=== PATIENT | male | born 1955 | race Hispanic/Latino ===

== ENCOUNTER 2023-02-08 03:19 | Inpatient (IN) | payer OTHER ==
[~2023-02-08] VITALS: Ht 172.7 cm; Wt 62.6 kg
[~2023-02-08 03:19] MED LIST: FLUT15.845 NS; NIFE-39 PO; ROSU10TA28 PO
[2023-02-08] MEDS ORDERED: ONDANSETRON 4MG INJ ONE (03:28)
[2023-02-08 03:40] LABS: BASOPHILS % (AUTO) 0.3 % (0.0-5.0); EOSINOPHILS % (AUTO) 1.6 % (0.0-8.0); HEMATOCRIT 26.1 % (42-54); LYMPHOCYTES % (AUTO) 13.9 % (21.0-51.0); MEAN CORPUSCULAR HEMOGLOBIN 28.6 pg (27.0-33.0); MEAN CORPUSCULAR VOLUME 86.7 fL (79-99); MONOCYTES % (AUTO) 6.9 % (3.0-13.0); NEUTROPHILS % (AUTO) 76.5 % (40.0-77.0); PLATELET COUNT (AUTO) 356 K/uL (130-400); RED BLOOD CELL COUNT(AUTO) 3.01 MIL/uL (4.50-6.20); RED CELL DISTRIBUTION WIDTH 14.6 % (11.0-15.5); WHITE BLOOD COUNT (AUTO) 10.4 K/uL (4.8-10.8)
[2023-02-08 03:49] LABS: POTASSIUM 3.5 mmol/L (3.5-5.1)
[2023-02-08 03:49] LABS: OCCULT BLOOD,GASTRIC FLUID POSITIVE (NEGATIVE)
[2023-02-08 03:51] LABS: INR 0.96 (0.85-1.15); PROTHROMBIN TIME 10.5 SEC (9.6-11.6)
[2023-02-08 03:52] LABS: PARTIAL THROMBOPLASTIN TIME 26.4 SEC (26.3-35.5)
[2023-02-08 03:54] LABS: ALBUMIN 3.2 g/dL (3.5-5.0); TOTAL PROTEIN, SERUM 6.8 g/dL (6.0-8.3)
[2023-02-08] MEDS ORDERED: ONDANSETRON 4MG INJ IVP ONE (04:00)
[2023-02-08] MEDS ORDERED: IPRATROPIUM/ALBUTEROL SULFATE 3 ML SOLUTION IH ONE (04:00)
[2023-02-08] MEDS ORDERED: CEFD300C3 PO (04:42)
[2023-02-08] MEDS ORDERED: LACTULOSE 20 GM/30 ML UDCUP PO PRN (05:30)
[2023-02-08] MEDS ORDERED: ONDANSETRON 4MG INJ IV PRN (05:30)
[2023-02-08] MEDS ORDERED: ACETAMINOPHEN 325 MG TAB PO PRN ×2 (05:30)
[2023-02-08] MEDS: CEFEPIME HCL 2 GM VIAL IVPB SCH ×2 (06:10→19:06)
[2023-02-08] MEDS: 0.9%NACL 1000ML 1,000 ML IV SCH ×2 (06:10→19:09)
[2023-02-08 06:32] LABS: APPEARANCE,URINE CLEAR (CLEAR); BILIRUBIN,URINE NEGATIVE (NEGATIVE); COLOR,URINE COLORLESS (YELLOW); GLUCOSE, URINE (UA) NEGATIVE (NEGATIVE); KETONES,URINE NEGATIVE (NEGATIVE); LEUKOCYTE ESTERASE ,URINE NEGATIVE Leu/uL (NEGATIVE); NITRATE,URINE NEGATIVE (NEGATIVE); OCCULT BLOOD,URINE NEGATIVE (NEGATIVE); PH,URINE 5.5 (5.0-8.0); PROTEIN,URINE NEGATIVE (NEGATIVE); UROBILINOGEN,URINE 0.2 mg/dL (0.2-1.0)
[2023-02-08] MEDS: FAMOTIDINE 20MG VIAL IV SCH ×2 (08:02→20:20)
[2023-02-08 08:50] LABS: HEMATOCRIT 23.7 % (42-54)
[2023-02-08 11:15] VITALS: BP 143/68
[2023-02-08 16:00] VITALS: BP 152/65
[2023-02-08] MEDS: FLUTICASONE/VILANTEROL 1 EACH BLST.W.DEV IH SCH (19:06)
[2023-02-08 19:07] VITALS: BP 144/53
[2023-02-08 20:54] LABS: HEMATOCRIT 24.1 % (42-54)
[2023-02-08 23:07] VITALS: BP 111/53
[2023-02-09 03:33] VITALS: BP 115/50
[2023-02-09] MEDS: CEFEPIME HCL 2 GM VIAL IVPB SCH ×2 (07:01→17:13)
[2023-02-09 07:30] VITALS: BP 123/57
[2023-02-09] MEDS: SOLU-MEDROL 40MG VIAL IVP SCH (08:27)
[2023-02-09] MEDS: FAMOTIDINE 20MG VIAL IV SCH ×2 (08:27→20:54)
[2023-02-09] MEDS: FLUTICASONE/VILANTEROL 1 EACH BLST.W.DEV IH SCH (08:30)
[2023-02-09 09:27] LABS: HEMATOCRIT 26.4 % (42-54); MEAN CORPUSCULAR HEMOGLOBIN 28.6 pg (27.0-33.0); MEAN CORPUSCULAR HGB CONC 32.6 g/dL (32.0-36.0); MEAN CORPUSCULAR VOLUME 87.7 fL (79-99); RED BLOOD CELL COUNT(AUTO) 3.01 MIL/uL (4.50-6.20); RED CELL DISTRIBUTION WIDTH 15.2 % (11.0-15.5); WHITE BLOOD COUNT (AUTO) 8.7 K/uL (4.8-10.8)
[2023-02-09 09:37] LABS: CREATININE 0.9 mg/dL (0.5-1.5); POTASSIUM 4.1 mmol/L (3.5-5.1)
[2023-02-09 11:05] VITALS: BP 153/62
[2023-02-09 15:10] VITALS: BP 143/63
[2023-02-09 20:00] VITALS: BP 132/67
[2023-02-09 23:47] VITALS: BP 127/65
[2023-02-10 04:00] VITALS: BP 127/57
[2023-02-10 04:31] LABS: HEMATOCRIT 22.7 % (42-54); MEAN CORPUSCULAR HEMOGLOBIN 28.2 pg (27.0-33.0); MEAN CORPUSCULAR HGB CONC 32.6 g/dL (32.0-36.0); MEAN CORPUSCULAR VOLUME 86.6 fL (79-99); RED BLOOD CELL COUNT(AUTO) 2.62 MIL/uL (4.50-6.20); RED CELL DISTRIBUTION WIDTH 14.8 % (11.0-15.5); WHITE BLOOD COUNT (AUTO) 10.2 K/uL (4.8-10.8)
[2023-02-10 04:56] LABS: CREATININE 0.8 mg/dL (0.5-1.5); POTASSIUM 3.7 mmol/L (3.5-5.1)
[2023-02-10] MEDS: CEFEPIME HCL 2 GM VIAL IVPB SCH (06:34)
[2023-02-10 07:35] VITALS: BP 135/57
[2023-02-10] MEDS: FLUTICASONE/VILANTEROL 1 EACH BLST.W.DEV IH SCH (09:17)
[2023-02-10] MEDS: SOLU-MEDROL 40MG VIAL IVP SCH (09:18)
[2023-02-10] MEDS: FAMOTIDINE 20MG VIAL IV SCH (09:18)
[2023-02-10 11:30] VITALS: BP 158/61
[2023-02-10 15:00] VITALS: BP 140/56
== END 2023-02-10 17:15 | disposition home or self-care (01) | DRG 180 ==
LOC: EDH 03:19 → EDHIP 05:26 → 4BH 11:15
PROVIDERS: ADMIT Hospitalist; ATTEND Hospitalist
DX: C34.90 Malignant neoplasm of unspecified part of unspecified bronchus or lung (principal); J96.01 Acute respiratory failure with hypoxia; J44.1 Chronic obstructive pulmonary disease with (acute) exacerbation; D64.9 Anemia, unspecified; E78.00 Pure hypercholesterolemia, unspecified; I10 Essential (primary) hypertension; Z87.891 Personal history of nicotine dependence; Z88.0 Allergy status to penicillin; Z95.828 Presence of other vascular implants and grafts
CPT/HCPCS: 36415; 71045; 80048; 80053; 81003; 82271; 84484; 85014; 85018; 85025; 85027; 85610; 85730; 86850; 86900; 86901; 93005; 94640; 94760; G0378; J0692; J2405; J2920; J3490; J7030

== ENCOUNTER 2023-03-18 21:41 | Observation (INO) | payer OTHER ==
[~2023-03-18] VITALS: Ht 172.7 cm; Wt 66.7 kg
[2023-03-18] MEDS ORDERED: ONDANSETRON 4MG INJ IVP ONE (22:30)
[2023-03-18] MEDS ORDERED: ALBUTEROL 0.083% 2.5 MG/3 ML INH IH ONE (22:30)
[2023-03-18] MEDS ORDERED: LACTATED RINGERS 1000ML 1,000 ML IV ONE (22:30)
[2023-03-18 22:42] LABS: BASOPHILS % (AUTO) 0.1 % (0.0-5.0); EOSINOPHILS % (AUTO) 0.8 % (0.0-8.0); HEMATOCRIT 30.3 % (42-54); LYMPHOCYTES % (AUTO) 14.6 % (21.0-51.0); MEAN CORPUSCULAR HEMOGLOBIN 27.8 pg (27.0-33.0); MEAN CORPUSCULAR HGB CONC 32.7 g/dL (32.0-36.0); MEAN CORPUSCULAR VOLUME 85.1 fL (79-99); MONOCYTES % (AUTO) 1.4 % (3.0-13.0); NEUTROPHILS % (AUTO) 82.6 % (40.0-77.0); PLATELET COUNT (AUTO) 268 K/uL (130-400); RED BLOOD CELL COUNT(AUTO) 3.56 MIL/uL (4.50-6.20); WHITE BLOOD COUNT (AUTO) 8.4 K/uL (4.8-10.8)
[2023-03-18 22:53] LABS: POTASSIUM 3.7 mmol/L (3.5-5.1)
[2023-03-18 23:00] LABS: B-TYPE NATRIURETIC PEPTIDE 23 pg/mL (0-100)
[2023-03-18 23:03] LABS: INR 0.93 (0.85-1.15); PROTHROMBIN TIME 10.4 SEC (9.6-11.6)
[2023-03-18 23:04] LABS: ALBUMIN 3.1 g/dL (3.5-5.0); MAGNESIUM 2.2 mg/dL (1.80-2.40); TOTAL PROTEIN, SERUM 6.4 g/dL (6.0-8.3)
[2023-03-18 23:05] LABS: PARTIAL THROMBOPLASTIN TIME 27.7 SEC (26.3-35.5)
[2023-03-19] MEDS ORDERED: ALBUTEROL 0.083% 2.5 MG/3 ML INH IH PRN (00:30)
[2023-03-19] MEDS ORDERED: METOPROLOL TARTRATE 1 MG/ML 5ML VIAL IV ONE (05:30)
[2023-03-19 06:47] LABS: BASOPHILS % (AUTO) 0.1 % (0.0-5.0); EOSINOPHILS % (AUTO) 0.8 % (0.0-8.0); HEMATOCRIT 30.3 % (42-54); LYMPHOCYTES % (AUTO) 14.8 % (21.0-51.0); MEAN CORPUSCULAR HEMOGLOBIN 27.4 pg (27.0-33.0); MEAN CORPUSCULAR HGB CONC 32.7 g/dL (32.0-36.0); MEAN CORPUSCULAR VOLUME 83.9 fL (79-99); MONOCYTES % (AUTO) 1.9 % (3.0-13.0); NEUTROPHILS % (AUTO) 82.1 % (40.0-77.0); PLATELET COUNT (AUTO) 296 K/uL (130-400); RED BLOOD CELL COUNT(AUTO) 3.61 MIL/uL (4.50-6.20); RED CELL DISTRIBUTION WIDTH 15.1 % (11.0-15.5); WHITE BLOOD COUNT (AUTO) 7.5 K/uL (4.8-10.8)
[2023-03-19 06:53] LABS: INR 0.93 (0.85-1.15); PROTHROMBIN TIME 10.6 SEC (9.6-11.6)
[2023-03-19 06:54] LABS: PARTIAL THROMBOPLASTIN TIME 27.6 SEC (26.3-35.5)
[2023-03-19 07:10] LABS: ALBUMIN 2.9 g/dL (3.5-5.0); CREATININE 0.7 mg/dL (0.5-1.5); POTASSIUM 4.1 mmol/L (3.5-5.1); TOTAL PROTEIN, SERUM 5.8 g/dL (6.0-8.3)
[2023-03-19 07:40] LABS: THYROID STIMULATING HORMONE 2.21 uIU/mL (0.36-3.74)
[2023-03-19] MEDS: FAMOTIDINE 20MG TAB PO SCH ×2 (09:43→20:39)
[2023-03-19 15:02] VITALS: BP 144/70
[2023-03-19 19:47] VITALS: BP 127/59
[2023-03-19] MEDS: METOPROLOL TARTRATE 25 MG TAB PO SCH (20:41)
[2023-03-19 23:46] VITALS: BP 103/47
[2023-03-20 04:27] VITALS: BP 105/51
[2023-03-20] MEDS ORDERED: METO25 PO (08:23)
[2023-03-20] MEDS: FAMOTIDINE 20MG TAB PO SCH (09:03)
[2023-03-20] MEDS: METOPROLOL TARTRATE 25 MG TAB PO SCH (09:03)
[2023-03-20] MEDS ORDERED: LIDOCAINE HCL 1% MDV 50ML VIAL ONE (10:15)
== END 2023-03-20 11:35 | disposition home or self-care (01) ==
LOC: EDH 21:41 → EDHIP 03-19 00:25 → 3DH 03-19 15:02
PROVIDERS: ADMIT Hospitalist; ATTEND Hospitalist
DX: R04.2 Hemoptysis (principal); C78.00 Secondary malignant neoplasm of unspecified lung; D84.9 Immunodeficiency, unspecified; J96.01 Acute respiratory failure with hypoxia; I10 Essential (primary) hypertension; I48.0 Paroxysmal atrial fibrillation; C34.90 Malignant neoplasm of unspecified part of unspecified bronchus or lung; D64.9 Anemia, unspecified; E44.0 Moderate protein-calorie malnutrition; E78.5 Hyperlipidemia, unspecified; E87.1 Hypo-osmolality and hyponatremia; I21.A1 Myocardial infarction type 2; K04.7 Periapical abscess without sinus; J18.9 Pneumonia, unspecified organism; Q33.3 Agenesis of lung; Z51.5 Encounter for palliative care; Z85.118 Personal history of other malignant neoplasm of bronchus and lung; Z87.891 Personal history of nicotine dependence; Z99.81 Dependence on supplemental oxygen; Z79.899 Other long term (current) drug therapy; Z98.890 Other specified postprocedural states; Z68.22 Body mass index [BMI] 22.0-22.9, adult
CPT/HCPCS: 96374; 99285; 82550; 83735; 83874; 84484 ×2; 80053 ×2; 83880; 85025 ×2; 85610 ×2; 85730 ×2; 36415 ×2; 71045; 93005 ×2; 94640; 96375; 84443; 80061; J7120; J2405; G0378 ×36; J1644; J3490

== ENCOUNTER 2024-09-09 21:20 | Inpatient (IN) | payer OTHER ==
[~2024-09-09] VITALS: Ht 172.7 cm; Wt 67.6 kg
[~2024-09-09 21:20] MED LIST changes: +METO25 PO; -ROSU10TA28 PO; +ROSU10TA72 PO
[2024-09-09 21:52] LABS: BASOPHILS # (AUTO) 0.03 K/uL (0.00-0.20); BASOPHILS % (AUTO) 0.4 % (0.0-5.0); EOSINOPHILS # (AUTO) 0.18 K/uL (0.00-0.70); EOSINOPHILS % (AUTO) 2.4 % (0.0-8.0); IMMATURE GRANULOCYTE ABSOLUTE 0.03 K/uL (0-1); LYMPHOCYTES # (AUTO) 1.9 K/uL (1.0-4.8); LYMPHOCYTES % (AUTO) 25.2 % (21.0-51.0); MEAN CORPUSCULAR HEMOGLOBIN 30.7 pg (27.0-33.0); MEAN CORPUSCULAR VOLUME 87.6 fL (79-99); MONOCYTES # (AUTO) 0.5 K/uL (0.1-1.0); MONOCYTES % (AUTO) 7.3 % (3.0-13.0); NEUTROPHILS # (AUTO) 4.7 K/uL (1.8-7.7); NEUTROPHILS % (AUTO) 64.3 % (40.0-77.0); PLATELET COUNT (AUTO) 226 K/uL (130-400); RED BLOOD CELL COUNT(AUTO) 3.88 MIL/uL (4.50-6.20); RED CELL DISTRIBUTION WIDTH 13.1 % (11.0-15.5); WHITE BLOOD COUNT (AUTO) 7.4 K/uL (4.8-10.8)
[2024-09-09 22:03] LABS: RAPID GROUP A STREP negative (NEGATIVE)
[2024-09-09 22:03] LABS: CREATININE 1.9 mg/dL (0.5-1.3); POTASSIUM 3.6 mmol/L (3.5-5.1)
[2024-09-09 22:06] LABS: SARS-CoV-2, RNA, NAAT NEGATIVE SARS CoV-2 (NEGATIVE)
--- NOTE | 2024-09-09 22:08 | NUR ---
PT'S GFR 38, PER ED OKAY FOR CHEST PE PROTOCOL WITH CONTRAST TO BE DONE
[2024-09-09 22:12] LABS: INFLUENZA TYPE A Negative For Type A (NEGATIVE); INFLUENZA TYPE B Negative For Type B (NEGATIVE)
--- NOTE | 2024-09-09 22:12 | NUR ---
PATIENT C/O OF HEADACHE, PATIENT AND PT'S SISTER VOICED GARRET, ED MD MADE AWARE, NO NEW ORDERS RECEIVED AT THIS TIME
[2024-09-09 22:24] LABS: ABG OXYGEN SATURATION 93.4 % (94.0-98.0); BASE EXCESS,VENOUS BLOOD GAS -3.3 (-2.0-3.0); DEVICE COMMENT VL RN ZULEMA; HCO3,VENOUS BLOOD GAS 17.4 (22.0-29.0); PCO2,VENOUS BLOOD GAS 22 (38-54); PH,VENOUS BLOOD GAS 7.513 (7.320-7.430); PO2,VENOUS BLOOD GAS 58.7 mmHg (23.0-48.0); VENT MODE, BG NC (ROOM AIR)
[2024-09-09] MEDS ORDERED: IOHEXOL-350 75 ML VIAL IV ONE (22:31)
[2024-09-09] MEDS: Solu-medROL 125MG VIAL IVP ONE (22:40)
[2024-09-09] MEDS: cefTRIAXone 1G VIAL IVPB ONE (22:40)
[2024-09-09] MEDS: metoCLOPRAmide 10 MG/2 ML VIAL IVP ONE (22:41)
[2024-09-09] MEDS: 0.9%NACL 1000ML 2,178 ML IV ONE (22:41)
[2024-09-09 22:55] LABS: B-TYPE NATRIURETIC PEPTIDE 51 pg/mL (0-100)
[2024-09-09 23:09] VITALS: PULSE 79; RESP 20
[2024-09-09] MEDS: IpraTROPium/alBUTERol SULFATE 3 ML SOLUTION IH ONE (23:09)
--- NOTE | 2024-09-09 23:31 | HMCIMG ---
CT CHEST PE PROTOCOL O CONT HISTORY: Hypoxia COMPARISON: 01/28/2023 TECHNIQUE: CT angiography of the chest was performed. The study was performed using angiographic technique with maximum intensity projection reconstruction images. Patient was given 75 cc of Omnipaque through intravenous route. FINDINGS: No CT evidence of filling defect is seen to suggest pulmonary embolus. No CT evidence of aortic dissection is seen. There are mild interstitial fibrosis. No evidence of parenchymal disease is seen. No CT evidence of pleural effusion or pericardial effusion is seen. The heart is enlarged. No evidence of adrenal mass is seen. Degenerative changes of the spine are noted. There is right renal cyst measuring 2 cm. IMPRESSION: 1. No CT evidence of acute pulmonary embolus is seen. CT was performed with one or more following dose reduction techniques: automated exposure control, adjustment of the mA and kv according to patient's size, or use of a iterative reconstruction technique.
[2024-09-10] VITALS (14 sets, daily range): BP systolic 128–163; BP diastolic 65–84; PULSE 77–104; RESP 18–20; TEMP 97.6–98.2; O2SAT 98–100
--- NOTE | 2024-09-10 00:40 | ERN ---
ED Note History of Present Illness Stated Complaint: SHORTNESS OF BREATH X 1 WEEK Chief Complaint: Shortness of Breath Time Seen by MD: 21:40 Allergies: Coded Allergies: Penicillins (Verified Allergy, Unknown, 03/19/23) codeine (Unverified Allergy, Unknown, 03/19/23) diphenhydramine HCl (Unverified Allergy, Unknown, 03/19/23) Uncoded Allergies: PCN (Allergy, Unknown, 03/19/23) Home Meds Active Scripts Metoprolol Tartrate (Lopressor) 25 Mg Tab, 12.5 MG PO BID for 30 Days, #60 TAB Prov:CARLOS GUY PROSTHODONTIST/OWNER 03/20/23 Reported Medications Fluticasone Propionate (Fluticasone Propionate) 15.8 Ml [place].susp, 2 SPRAY NS AD PRN for NASAL CONGESTION 01/29/23 Rosuvastatin Calcium (Rosuvastatin Calcium) 10 Mg Tablet, 10 MG PO DAILY, TAB 01/29/23 Nifedipine (Nifedipine ER) 60 Mg Tab.er.24, 60 MG PO DAILY 01/29/23 Past Medical History Dictation 69-year-old male with past medical history of lung cancer (last chemotherapy treatment one month ago), high blood pressure, high cholesterol, diabetes, COPD, AFib presents via EMS with acute hypoxic respiratory failure. Patient states he has been having wheezing and difficulty breathing. Patient is requiring more oxygen than baseline. Patient denies fevers, nausea, vomiting diaphoresis, syncope, presyncope, productive cough Past Medical History: Cancer, High Cholesterol, Hypertension, Pneumonia Surgical History: None Family History: Negative Social History: Smokers Review of System Dictation See HPI Initial Vital Sign VS Vital Signs Date Time Temp Pulse Resp B/P (MAP) Pulse Ox O2 Delivery O2 Flow Rate FiO2 09/09/24 21:24 98.1 81 16 163/73 100 Room Air 0 09/09/24 21:45 28 Physical Exam Dictation Chronically ill-appearing, acutely weak appearing, tachypneic, hypoxic, acute respiratory distress Results (Laboratory/Radiology) Laboratory/Radiology Laboratory Tests Test 09/09/24 21:40 09/09/24 21:41 09/09/24 22:22 Influenza Type A Antigen Negative For Type A Influenza Type B Antigen Negative For Type B SARS-CoV-2, RNA, NAAT NEGATIVE SARS CoV-2 Group A Streptococcus Rapid negative (NEGATIVE) White Blood Count 7.4 K/uL (4.8-10.8) Red Blood Count 3.88 MIL/uL (4.50-6.20) L Hemoglobin 11.9 g/dL (14.0-18.0) L Hematocrit 34.0 % (42-54) L Mean Corpuscular Volume 87.6 fL (79-99) Mean Corpuscular Hemoglobin 30.7 pg (27.0-33.0) Mean Corpuscular Hemoglobin Concent 35.0 g/dL (32.0-36.0) Red Cell Distribution Width 13.1 % (11.0-15.5) Platelet Count 226 K/uL (130-400) Mean Platelet Volume 8.5 fL (7.5-10.5) Immature Granulocyte % (Auto) 0.4 % (0-1) Neutrophils (%) (Auto) 64.3 % (40.0-77.0) Lymphocytes (%) (Auto) 25.2 % (21.0-51.0) Monocytes (%) (Auto) 7.3 % (3.0-13.0) Eosinophils (%) (Auto) 2.4 % (0.0-8.0) Basophils (%) (Auto) 0.4 % (0.0-5.0) Neutrophils # (Auto) 4.7 K/uL (1.8-7.7) Lymphocytes # (Auto) 1.9 K/uL (1.0-4.8) Monocytes # (Auto) 0.5 K/uL (0.1-1.0) Eosinophils # (Auto) 0.18 K/uL (0.00-0.70) Basophils # (Auto) 0.03 K/uL (0.00-0.20) Absolute Immature Granulocyte (auto 0.03 K/uL (0-1) Nucleated Red Blood Cells 0.0 % (0.0-0.19) Sodium Level 132 mmol/L (136-145) L Potassium Level 3.6 mmol/L (3.5-5.1) Chloride Level 99 mmol/L (101-111) L Carbon Dioxide Level 19 mmol/L (21-32) L Blood Urea Nitrogen 23 mg/dL (7-18) H Creatinine 1.9 mg/dL (0.5-1.3) H Glomerular Filtration Rate Calc 38 mL/min (>90) Random Glucose 88 mg/dL (70-105) Lactic Acid Level 2.2 mmol/L (0.8-2.5) Total Calcium 9.3 mg/dL (8.5-10.1) Total Creatine Kinase 95 U/L (21-232) # Troponin I High Sensitivity 30.1 ng/L (4-75) B-Type Natriuretic Peptide 51 pg/mL (0-100) Blood Gas Specimen Type Venous Arterial Blood Oxygen Saturation 93.4 % (94.0-98.0) L Venous Blood pH 7.513 (7.320-7.430) Venous Blood pCO2 at Patient Temp 22 (38-54) L Venous Blood pO2 at Patient Temp 58.7 mmHg (23.0-48.0) H Venous Blood HCO3 17.4 (22.0-29.0) L Venous Blood Base Excess -3.3 (-2.0-3.0) L Blood Gas Temperature 37.0 CELSIUS (35.5-37.0) Blood Gas Flow-by 2.00 L/min (0.00-15.00) Blood Gas Vent Mode NC (ROOM AIR) FiO2 28.0 % Blood Gas Specimen Comment VL RN AZALIA ED Course ED Course Orders Procedure Category Date Status Time Cbc With Differential LAB 09/09/24 Complete 21:39 B-Type Natriuretic LAB 09/09/24 Complete Peptide 21:39 Chest 1vw RAD 09/09/24 Taken 21:39 Covid Rna Naat LAB 09/09/24 Complete 21:39 Influenza Type A & B, LAB 09/09/24 Complete Rapid 21:39 Rapid (Group A Strep) LAB 09/09/24 Complete 21:39 12 Lead Ekg Tracing- EKG 09/09/24 Logged Technical 21:39 Troponin I High LAB 09/09/24 Complete Sensitivity 21:39 Blood Cult MAMIE 09/09/24 In Process 21:41 0.9%Nacl 1000ml (Ns PHA 09/09/24 In Process 1000ml) 22:00 Creatine Kinase, Total LAB 09/09/24 Complete 21:41 Lactic Acid LAB 09/09/24 Complete 21:41 Basic Metabolic Panel LAB 09/09/24 Complete 21:41 Cardiac Panel LAB 09/09/24 Complete 21:41 12 Lead Ekg Tracing- EKG 09/09/24 Logged Technical 21:41 Ipratropium/Albuterol PHA 09/09/24 Complete Neb (Duoneb) 22:00 Methylprednisolone PHA 09/09/24 Complete Succ 125mg (Solu-Medr 22:00 Venous Blood Gas RT 09/09/24 Transmitted 21:41 Ceftriaxone 1g Vial PHA 09/09/24 Complete (Rocephine 1g Inj) 22:00 Ct Chest Pe Protocol CT 09/09/24 Resulted Wwo Cont 21:44 Metoclopramide 10 PHA 09/09/24 Complete Mg/2 Ml Vial (Reglan 1 22:30 Venous Blood Gas LAB 09/09/24 Complete 22:22 Iohexol (Omnipaque) PHA 09/09/24 Complete 22:31 Admit Orders ADM 09/10/24 Transmitted 00:31 Vital Signs(Adult CPOE 09/10/24 Transmitted Hospitalist) 00:31 Oxygen By Nc/Pulse Ox CPOE 09/10/24 Transmitted 00:31 Nurse To Enter Home CPOE 09/10/24 Transmitted Medication 00:31 Condition: CPOE 09/10/24 Transmitted 00:31 I&O Q Shift CPOE 09/10/24 Transmitted 00:31 Daily Weights CPOE 09/10/24 Transmitted 00:31 Activity: Ad Anastasiya CPOE 09/10/24 Transmitted 00:31 Cbc With Differential LAB 09/10/24 Transmitted 04:00 Magnesium LAB 09/10/24 Transmitted 04:00 Phosphorus LAB 09/10/24 Transmitted 04:00 Basic Metabolic Panel LAB 09/10/24 Transmitted 04:00 Cbc With Differential LAB 09/11/24 Verified 04:00 Basic Metabolic Panel LAB 09/11/24 Verified 04:00 Lactated Ringers PHA 09/10/24 Transmitted 1000ml (Lactated 01:00 Urine Sodium,Random LAB 09/10/24 Transmitted 00:31 Urine Creatinine LAB 09/10/24 Transmitted Random 00:31 Osmolality Urine LAB 09/10/24 Transmitted 00:31 Consistent Carb DIET 09/11/24 Transmitted Breakfast Acetaminophen 325 Tab PHA 09/10/24 Transmitted (Tylenol 325mg Tab 01:00 Ipratropium/Albuterol PHA 09/10/24 Transmitted Neb (Duoneb) 06:00 Ondansetron 4mg Inj PHA 09/10/24 Transmitted (Zofran 4mg Inj) 01:00 Hydralazine 20mg Inj PHA 09/10/24 Transmitted (Apresoline 20mg In 01:00 Enoxaparin Sodium 40 PHA 09/10/24 Transmitted Mg/0.4 Ml (Lovenox) 09:00 Tramadol Hcl (Ultram) PHA 09/10/24 Transmitted 01:00 Guaifenesin-Dm PHA 09/10/24 Transmitted 200/20mg 10ml 01:00 Methylprednisolone PHA 09/10/24 Transmitted Succ 40mg (Solu-Medro 06:00 Current Medications Medications (Trade) Dose Ordered Sig/Leslie Route PRN Reason Start Time Stop Time Status Last Admin Dose Admin Albuterol (DUOneb) 3 udvial ONCE ONCE IH 09/09/24 22:00 09/09/24 22:01 DC 09/09/24 23:09 Ceftriaxone Sodium (ROCEphine 1G INJ) 1 gm ONCE ONCE IVPB 09/09/24 22:00 09/09/24 22:01 DC 09/09/24 22:40 Iohexol (Omnipaque) 75 ml STK-MED ONCE IV 09/09/24 22:31 09/09/24 22:32 DC Methylprednisolone Sodium Succinate (Solu-medROL 125MG) 125 mg ONCE ONCE IVP 09/09/24 22:00 09/09/24 22:01 DC 09/09/24 22:40 Metoclopramide HCl (regLAN 10MG IV) 10 mg ONCE ONCE IVP 09/09/24 22:30 09/09/24 22:31 DC 09/09/24 22:41 Sodium Chloride 2,178 ml @ 726 mls/hr ONCE ONCE IV 09/09/24 22:00 09/10/24 00:59 09/09/24 22:41 Vital Signs Date Time Temp Pulse Resp B/P (MAP) Pulse Ox O2 Delivery O2 Flow Rate FiO2 09/09/24 23:16 79 16 138/66 99 Nasal Cannula* 2 28 09/09/24 23:09 79 20 09/09/24 23:09 79 20 09/09/24 21:45 98.1 70 18 185/89 99 Nasal Cannula* 2 28 09/09/24 21:24 98.1 81 16 163/73 100 Room Air 0 Medical Decision Making MDM ddx: Pulmonary embolism versus sepsis versus pneumonia versus COPD exacerbation versus CHF versus AFib RVR All images and diagnosis interpreted by me unless otherwise stated: EK09/09/2024; 10/05/2034 Normal sinus rhythm 69 beats per minute, normal axis, normal intervals, no acute ischemic ST-T changes CTA of chest pain. For pulmonary embolism. EKG shows no acute ischemic changes. Troponin with no murmurs. Doubt STEMI. Doubt NSTEMI. Chest x-ray shows no acute cardiopulmonary pathology. Doubt pneumonia. Doubt CHF. Patient is hypoxic and tachypneic and using expiratory wheezing. Patient given multiple rounds of DuoNebs, IV steroids, IV antibiotics. The patient has acute COPD exacerbation. Patient's symptoms improved. ABG significant for hypercapnia. Patient has acute hypercapnic respiratory failure Upon re-evaluation, patient is now at baseline oxygen requirement. Patient resting comfortably with family at bedside. Recommend admission. Patient agreeable with plan. Invited and answered all questions prior to admission. Sp kecia with hospitalist. Hospitalist accepts admission. DX & DISP Disposition: Inpatient Decision to Admit Date: Sep 10, 2024 Decision to Admit Time: 00:39 Departure Impression: Primary Impression: Acute exacerbation of chronic obstructive pulmonary disease (COPD) Additional Impressions: Acute hypoxic respiratory failure, Acute hypercapnic respiratory failure Critical Time: 30 minutes Condition: Stable Assign Patient to: Dr LLANOS Referrals: TANIYA CHAIREZ MD (PCP) MONICA LONG DO Sep 10, 2024 00:40
--- NOTE | 2024-09-10 00:50 | NUR ---
TERESITA [employer]P [employer] WITH HOSPITALIST AT BEDSIDE AT THIS TIME
[2024-09-10] MEDS ORDERED: LEVO75CA5 PO (00:59)
[2024-09-10] MEDS ORDERED: APIX5TAB PO (00:59)
[2024-09-10] MEDS ORDERED: FLUT1BLS12 IH (00:59)
[2024-09-10] MEDS ORDERED: FOLI1 PO (00:59)
[2024-09-10] MEDS ORDERED: NIFE-78 PO (00:59)
--- NOTE | 2024-09-10 00:59 | HP ---
History of Present Illness Reason for Visit: Shortness of breaths Referring MD: Dr. Herrera History of Present Illness Mr. Reagan is a 69-year-old male that was seen and examined today on 09/10/2024. Patient is a good historian and personal health. Patient's sister Sharon Reagan is at bedside. Patient reports that he came to the emergency department with a chief complaint of shortness of breath. Onset was one week ago. Location is to lungs. Duration is on and off. Symptoms are aggravated with lifting objects and excessive walking. Symptoms are mildly alleviated with rest. Patient reports associated lightheadedness. Character is described as" like I can not catch my breath. "Today in the emergency department CBC unremarkable, BUN 23, creatinine 1.9. Patient reports that last chemotherapy was 101 month ago. Patient reports he has a PET scan scheduled for October 2024. Patient follows Dr. Rodgers for Oncology Services in the outpatient setting. Emergency room physician recommended that patient be admitted with a diagnosis of COPD exacerbation. Past Medical History Patient History: Asthma MOTHER Chronic obstructive pulmonary disease MOTHER Diabetes mellitus FATHER BROTHER BROTHER SISTER SISTER Hypertension BROTHER BROTHER SISTER SISTER ADDITIONAL PAST MEDICAL HISTORY: [COPD, Hypertension, hyperlipidemia, stage III lung CA with last chemotherapy July 2024] SOCIAL HISTORY: [Patient smoked 2 packs of cigarettes weekly for approximately 40 years and quit smoking in September 2022. Patient denies alcohol use. Patient denies drug use. Patient lives with his significant other Bridgette Brooks. Patient is typically independent of his ADLs. Patient denies difficulty paying his bills. Patient has good access to healthcare through his insurance.] SURGICAL HISTORY: [Oral surgery that caused patient to require a trach but tracheostomy was subsequently closed later on.] Review of Systems General: No Fever, No Chills, No Night Sweats, No Fatigue, No Malaise, No Appetite, No Other HEENT: No Head Aches, No Visual Changes, No Eye Pain, No Ear Pain, No Dysphasia, No Sinus Congestion, No Post Nasal Drip, No Sore Throat, No Other Pulmonary: Dyspnea; No Cough, No Pleuritic Chest Pain, No Other Cardiovascular: Lt Headedness; No: Chest Pain, Palpitations, Orthopnea, Paroxysmal Noc. Dyspnea, Edema, Other Gastrointestinal: No: Nausea, Vomiting, Abdominal Pain, Diarrhea, Constipation, Melena, Hematochezia, Other Genitourinary: No Dysuria, No Frequency, No Incontinence, No Hematuria, No R etention, No Other Musculoskeletal: No: other, neck pain, shoulder pain, arm pain, back pain, hand pain, leg pain, foot pain Skin: No Urticaria, No Rash, No Other Neurological: No: Weakness, Numbness, Incoordination, Change in speech, Confusion, Seizures, Other Allergies: Coded Allergies: Penicillins (Verified Allergy, Unknown, 03/19/23) codeine (Unverified Allergy, Unknown, 03/19/23) diphenhydramine HCl (Unverified Allergy, Unknown, 03/19/23) Uncoded Allergies: PCN (Allergy, Unknown, 03/19/23) Scheduled Metoprolol Tartrate (Lopressor), 12.5 MG PO BID Nifedipine (Nifedipine ER), 60 MG PO DAILY, (Reported) Rosuvastatin Calcium (Rosuvastatin Calcium), 10 MG PO DAILY, (Reported) Scheduled PRN Fluticasone Propionate (Fluticasone Propionate), 2 SPRAY NS AD PRN for NASAL CONGESTION, (Reported) Exam Vital Signs Vital Signs Date Time Temp Pulse Resp B/P (MAP) Pulse Ox O2 Delivery O2 Flow Rate FiO2 09/10/24 00:49 98 14 132/71 98 Nasal Cannula* 2 28 09/09/24 21:45 98.1 General Appearance: Alert, Oriented X3, Cooperative, mild distress HEENT: Atraumatic, EOMI, Mucous membr. moist/pink Respiratory: Other (Diminished air entry to bilateral lower lobes) Cardiovascular: Regular rate, Regular rhythm, Normal S1, Normal S2 Abdominal: Normal bowel sounds, Soft, No tenderness Extremities: No edema Skin: No significant lesion Neuro: Normal speech, Strength at 5/5 X4 ext, Sensation intact, Cranial nerves 3-12 NL Psych/Mental Status: Mental status NL, Mood NL, Thoughts/Content NL Assessment/Plan ASSESSMENT: [ COPD EXACERBATION, POA STAGE III LUNG CA JUNIOR VERSUS CKD HYPERTENSION HYPERLIPIDEMIA] PLAN: [ Admit patient to medical floor as inpatient status. DuoNebs every 6 hours. Patient received Solu-Medrol 125 mg IV times 1. Continue Solu-Medrol 40 mg IV every 8 hours. Supplemental oxygen to maintain O2 saturation greater 92%. Consult patient's oncologist, Dr. Rodgers for evaluation and recommendations. Lactated Ringer's 75 mL/HR. Calculate FENA Check urine sodium, creatinine, osmolality Avoid nephrotoxic agents when possible Renally dose all medications when possible Consider consulting Nephrology service if any worsening renal function or evidence of ATN. Monitor patient's labs. Weight patient daily. Monitor intake and output. Consider resuming home medications once they are reconciled For now, Hydralazine 10 mg IV every 4 hours for systolic blood pressure greater than 160 mmHg GI prophylaxis, Protonix 40 mg by mouth once daily. DVT prophylaxis, Lovenox 40 mg subcutaneously once daily. ADVANCED CARE PLANNING 1. Which of the following were discussed? Hospice Care - Yes Therapeutic options - Yes Advance Directives - Yes-patient states he does not have any advance directives in place at this time, however his sister can make decisions for him if he becomes unable. Other discussions - patient wishes to remain a full code at this time 2. Discussed with who? Patient 3. Voluntary nature of this service was explained to the patient? Yes 4. Amount of time spent - ___ 16 minutes ____ 5. Reviewed by Physician? (if this service was performed by NPP) Yes This document was generated in part using voice recognition software, occasional wrong word or sound alike substitutions may have occurred due to the inherent limitations of voice recognition software. Read the chart carefully and recognize using context, where the substitutions have occurred. Although every effort was made to edit the content, half backer and typing errors may occur ATTESTATION BY PHYSICIAN I have seen and examined the patient. I reviewed the documentation, medical decision making, and treatment plan as noted by the mid-level provider above. I agree with the findings and plan of care. LAURA REAGAN [facility] Sep 10, 2024 00:59
[2024-09-10] MEDS ORDERED: ondanSETRON 4MG INJ IV PRN (01:00)
[2024-09-10] MEDS ORDERED: guaiFENesin-DM 200/20MG 10ML PO PRN (01:00)
[2024-09-10] MEDS ORDERED: hydrALAZine 20MG/ML VIAL IV PRN (01:00)
--- NOTE | 2024-09-10 01:06 | NUR ---
REPORT GIVEN TO MARA MACIAS
[2024-09-10 01:32] LABS: CREATININE,URINE RANDOM 66.25 mg/dL (30-135)
[2024-09-10] MEDS: traMADol HCL 50 MG TABLET PO PRN (01:49)
[2024-09-10] MEDS: acetaMINOPHEN 325 MG TAB PO PRN (01:57)
[2024-09-10] MEDS: LACTATED RINGERS 1000ML 1,000 ML IV SCH (01:57)
[2024-09-10 02:15] LABS: BASOPHILS # (AUTO) 0.01 K/uL (0.00-0.20); BASOPHILS % (AUTO) 0.1 % (0.0-5.0); EOSINOPHILS # (AUTO) 0.01 K/uL (0.00-0.70); EOSINOPHILS % (AUTO) 0.1 % (0.0-8.0); HEMATOCRIT 33.6 % (42-54); IMMATURE GRANULOCYTE ABSOLUTE 0.05 K/uL (0-1); LYMPHOCYTES # (AUTO) 0.7 K/uL (1.0-4.8); LYMPHOCYTES % (AUTO) 7.7 % (21.0-51.0); MEAN CORPUSCULAR HEMOGLOBIN 30.7 pg (27.0-33.0); MEAN CORPUSCULAR HGB CONC 34.5 g/dL (32.0-36.0); MEAN CORPUSCULAR VOLUME 88.9 fL (79-99); MONOCYTES # (AUTO) 0.1 K/uL (0.1-1.0); MONOCYTES % (AUTO) 1.3 % (3.0-13.0); NEUTROPHILS # (AUTO) 7.8 K/uL (1.8-7.7); NEUTROPHILS % (AUTO) 90.2 % (40.0-77.0); PLATELET COUNT (AUTO) 215 K/uL (130-400); RED BLOOD CELL COUNT(AUTO) 3.78 MIL/uL (4.50-6.20); RED CELL DISTRIBUTION WIDTH 13.2 % (11.0-15.5); WHITE BLOOD COUNT (AUTO) 8.6 K/uL (4.8-10.8)
[2024-09-10 02:38] LABS: CREATININE 1.8 mg/dL (0.5-1.3); PHOSPHORUS 2.3 mg/dL (2.5-4.9); POTASSIUM 3.4 mmol/L (3.5-5.1)
[2024-09-10] MEDS ORDERED: Solu-medROL 40MG VIAL IVP SCH (06:00)
--- NOTE | 2024-09-10 06:36 | EKG ---
[facility] Test Date: 2024-09-09 Test Time: 21:35:31 Pat Name: MARY CARMEN LO Department: [facility] Room: 304 1 Gender: M Mmi Teacher: [id number] : [id number] Requested By: MONICA LONG Order Number: [id number] Reading MD: Lexi Calvo Measurements Intervals [place] Rate: 74 P: 30 OK: 199 QRS: 31 QRSD: 95 T: 32 QT: 384 QTc: 427 Interpretive Statements Sinus rhythm Compared to ECG 03/19/2023 05:13:45 Atrial fibrillation no longer present Electronically Signed On 09-10-2024 10:34:21 LEACH RUNNER by Lexi Calvo Please click the below link to view image of tracing.
[2024-09-10] MEDS: IpraTROPium/alBUTERol SULFATE 3 ML SOLUTION IH SCH (07:02)
[2024-09-10] MEDS: PANTOPrazole 40 MG TAB DR PO SCH (08:10)
[2024-09-10] MEDS: ENOXAPARIN SODIUM 40 MG/0.4 ML SYRINGE SQ SCH (08:11)
[2024-09-10] MEDS: Solu-medROL 40MG VIAL IVP SCH (08:15)
--- NOTE | 2024-09-10 08:52 | HMCIMG ---
Exam Type: CHEST 1VW Clinical Information: SOB Comparison: None Findings: Right MediPort catheter is seen in place. There is no pneumothorax. The lungs are clear of infiltrates. The heart is normal in size. The bony and soft tissue structures of the chest are unremarkable. Impression: Clear lungs.
--- NOTE | 2024-09-10 14:00 | NUR ---
DCP Pt awake, alert, oriented X3 turkmen and frisian speaking lives alone. Has a girlfriend Bridgette Jeffery [phone] and pt uses home O2 with [employer]. Pt is independent and anticipates discharge is for home. Addendum: 09/10/24 at 1405 by JORGE ROBERTSON RN CM Amended: Links added.
[2024-09-10] MEDS ORDERED: DOXYCYCLINE 100MG+NS 250ML 250 ML IV SCH (14:30)
--- NOTE | 2024-09-10 14:30 | PN ---
[facility] PROGRESS NOTE Date of Service: Sep 10, 2024 Time of Service: 14:[address] Gómez SUBJECTIVE: [Mr. Reagan is a 69-year-old male that was seen and examined today on 09/10/2024. Patient is a good historian and personal health. Patient's sister Sharon Reagan is at bedside. Patient reports that he came to the emergency department with a chief complaint of shortness of breath. Onset was one week ago. Location is to lungs. Duration is on and off. Symptoms are aggravated with lifting objects and excessive walking. Symptoms are mildly alleviated with rest. Patient reports associated lightheadedness. Character is described as" like I can not catch my breath. "Today in the emergency department CBC unremarkable, BUN 23, creatinine 1.9. Patient reports that last chemotherapy was 101 month ago. Patient reports he has a PET scan scheduled for October 2024. Patient follows Dr. Rodgers for Oncology Services in the outpatient setting. Emergency room physician recommended that patient be admitted with a diagnosis of COPD exacerbation. 09/10 patient was seen by nurse practitioner and physician during rounding in room 304. Chest x-ray showed negative. CT chest was negative for PE. Patient continues to complain of shortness of breaths. At this moment patient is 2 L nasal cannula. Patient is AFib controlled on Eliquis. Solu-Medrol 40 mg equivalents q.8 hours was ordered. We will also add doxycycline antibiotic. We are pending further evaluation of oncologist and marketing sales supervisor. We will continue to monitor patient in the meantime. A.m. labs. ] REVIEW OF SYSTEMS CONSTITUTIONAL: Denies fevers, chills, or night sweats. No unintentional weight loss reported. NEUROLOGICAL: Denies headache, amaurosis fugax, motor weakness, sensory deficit, vertigo/spinning sensation, gait abnormalities, or tremors. ENT: No hearing loss, otalgia, otorrhea, rhinitis, rhinorrhea, hoarseness, or sore throat. CARDIOVASCULAR: Denies any exertional angina, dyspnea on exertion, orthopnea, paroxysmal nocturnal dyspnea, palpitations, life-threatening arrhythmias, claudication. PULMONARY: Denies any shortness of breath, cough, phlegm/sputum, hemoptysis, pleuritic chest pain. SLEEP: Denies morning headaches, daytime somnolence or napping. Denies difficulty falling asleep, staying asleep, waking from sleep. Denies knowledge of snoring. GASTROINTESTINAL: Denies any type of dysphagia to either liquids or solids. Denies nausea, vomiting, pyrosis, early satiety, abdominal pain, diarrhea, constipation, or changes in stool consistency or caliber. Denies coffee-ground emesis, hematemesis, hematochezia, or melanotic stools. GENITOURINARY: Denies frequency, urgency, nocturia, hematuria or incontinence (Storage/Irritative symptoms.) Low urinary stream, straining to void, urinary intermittency or hesitancy, splitting of the voiding stream, terminal dribbling. ENDOCRINOLOGIC: Denies polyuria, polydipsia, polyphagia or heat/cold intolerances. HEMATOLOGIC: Denies thrombophilia/previous clots, or coagulopathy/bleeding disorders. ONCOLOGIC: Denies personal history of malignancy. DERMATOLOGIC: Denies rashes or pruritus. PSYCHIATRIC: Denies any suicidal or homicidal ideation. Denies hallucinations. PHYSICAL EXAM GENERAL APPEARANCE: The patient is awake, alert, and oriented, in no acute cardiopulmonary distress. NEUROLOGICAL: Cranial nerves II-XII grossly intact. Motor is 5/5 in bilateral upper and lower extremities proximal to distal. No sensory deficits. HEENT: Face is symmetric. Pupils are equal and reactive. Extraocular movements are intact. NECK: Supple. No JVD. No thyromegaly. No submental, submandibular, pre-/po stauricular, occipital or supraclavicular lymphadenopathy. CHEST: Normal chest expansion. No Telemetry. LUNGS: Absence of any rales, rhonchi or any wheezing. CARDIOVASCULAR: Regular. S1 and S2 normal. No appreciable rubs, murmurs or gallops. ABDOMEN: Soft, nontender, and nondistended. There is no rebound, voluntary guarding, or rigidity. : Deferred. No Zamarripa. EXTREMITIES: Non-edematous and not cyanotic. No clubbing. Good capillary refill. SKIN: No skin breakdown. Vital Signs (last 8hr) Date Time Temp Pulse Resp B/P (MAP) Pulse Ox O2 Delivery O2 Flow Rate FiO2 09/10/24 11:34 88 18 09/10/24 08:00 97.5 104 20 163/84 98 Nasal Cannula 2.0 09/10/24 07:06 95 18 N/Cannula Low lpm 2.0 28 09/10/24 07:03 95 18 LABS: Laboratory: Test 09/10/24 02:03 09/09/24 23:02 09/09/24 22:22 09/09/24 21:41 Range/Units White Blood Count 8.6 4.8-10.8 K/uL Red Blood Count 3.78 L 4.50-6.20 MIL/uL Hemoglobin 11.6 L 14.0-18.0 g/dL Hematocrit 33.6 L 42-54 % Mean Corpuscular Volume 88.9 79-99 fL Mean Corpuscular Hemoglobin 30.7 27.0-33.0 pg Mean Corpuscular Hemoglobin Concent 34.5 32.0-36.0 g/dL Red Cell Distribution Width 13.2 11.0-15.5 % Platelet Count 215 130-400 K/uL Mean Platelet Volume 8.7 7.5-10.5 fL Immature Granulocyte % (Auto) 0.6 0-1 % Neutrophils (%) (Auto) 90.2 H 40.0-77.0 % Lymphocytes (%) (Auto) 7.7 L 21.0-51.0 % Monocytes (%) (Auto) 1.3 L 3.0-13.0 % Eosinophils (%) (Auto) 0.1 0.0-8.0 % Basophils (%) (Auto) 0.1 0.0-5.0 % Neutrophils # (Auto) 7.8 H 1.8-7.7 K/uL Lymphocytes # (Auto) 0.7 L 1.0-4.8 K/uL Monocytes # (Auto) 0.1 0.1-1.0 K/uL Eosinophils # (Auto) 0.01 0.00-0.70 K/uL Basophils # (Auto) 0.01 0.00-0.20 K/uL Absolute Immature Granulocyte (auto 0.05 0-1 K/uL Nucleated Red Blood Cells 0.0 0.0-0.19 % White Cell Morphology Comment See comments Sodium Level 129 L 136-145 mmol/L Potassium Level 3.4 L 3.5-5.1 mmol/L Chloride Level 98 L 101-111 mmol/L Carbon Dioxide Level 19 L 21-32 mmol/L Blood Urea Nitrogen 19 H 7-18 mg/dL Creatinine 1.8 H 0.5-1.3 mg/dL Glomerular Filtration Rate Calc 40 >90 mL/min Random Glucose 135 #H 70-105 mg/dL Lactic Acid Level 2.3 0.8-2.5 mmol/L Total Calcium 8.5 8.5-10.1 mg/dL Phosphorus Level 2.3 L 2.5-4.9 mg/dL Magnesium Level 2.00 1.80-2.40 mg/dL Urine Random Creatinine 66.25 30-135 mg/dL Urine Random Sodium 118 40-220 mmol/l Blood Gas Specimen Type Venous Arterial Blood Oxygen Saturation 93.4 L 94.0-98.0 % Venous Blood pH 7.513 H 7.320-7.430 Venous Blood pCO2 at Patient Temp 22 L 38-54 Venous Blood pO2 at Patient Temp 58.7 H 23.0-48.0 mmHg Venous Blood HCO3 17.4 L 22.0-29.0 Venous Blood Base Excess -3.3 L -2.0-3.0 Blood Gas Temperature 37.0 35.5-37.0 CELSIUS Blood Gas Flow-by 2.00 0.00-15.00 L/min Blood Gas Vent Mode NC ROOM AIR FiO2 28.0 % Blood Gas Specimen Comment VL RN AZALIA Total Creatine Kinase 95 # 21-232 U/L Troponin I High Sensitivity 30.1 4-75 ng/L B-Type Natriuretic Peptide 51 0-100 pg/mL Test 09/09/24 21:40 Range/Units Influenza Type A Antigen Negative For Type A NEGATIVE Influenza Type B Antigen Negative For Type B NEGATIVE SARS-CoV-2, RNA, NAAT NEGATIVE SARS CoV-2 NEGATIVE Group A Streptococcus Rapid negative NEGATIVE Current Medications Medications (Trade) Dose Ordered Sig/Leslie Route PRN Reason Start Time Stop Time Status Last Admin Dose Admin Acetaminophen (TYLenol 325MG TAB) 650 mg Q6H PRN PO TEMPERATURE GREATER THAN 101.5 09/10/24 01:00 10/10/24 00:59 09/10/24 01:57 650 MG Albuterol (DUOneb) 1 UDVIAL [id number] IH 09/10/24 06:00 10/10/24 05:59 09/10/24 11:33 1 UDVIAL Enoxaparin Sodium (Lovenox) 40 mg DAILY SQ 09/10/24 09:00 10/10/24 08:59 09/10/24 08:11 40 MG Guaifenesin/ Dextromethorphan (RobiTUSSin DM 200/20MG 10ML) 10 ml Q4H PRN PO COUGH 09/10/24 01:00 10/10/24 00:59 Hydralazine HCl (APRESOLine 20MG INJ) 10 mg Q6H PRN IV For:SBP above 160;DBP above 90 09/10/24 01:00 10/10/24 00:59 Lactated Ringer's 1,000 ml @ 75 mls/hr [id number] IV 09/10/24 01:00 10/10/24 00:59 09/10/24 01:57 75 MLS/HR Methylprednisolone Sodium Succinate (Solu-medROL 40MG) 40 mg Q8H IVP 09/10/24 06:00 09/10/24 08:14 DC Methylprednisolone Sodium Succinate (Solu-medROL 40MG) 40 mg Q8H IVP 09/10/24 08:30 10/10/24 08:29 09/10/24 08:15 40 MG Ondansetron HCl (zoFRAN 4MG INJ) 4 mg Q6H PRN IV NAUSEA/VOMITING 09/10/24 01:00 10/10/24 00:59 Pantoprazole Sodium (PROTonix 40MG TAB) 40 mg DAILY PO 09/10/24 09:00 10/10/24 08:59 09/10/24 08:10 40 MG Tramadol HCl (UltRAM) 50 mg Q6H PRN PO MODERATE PAIN (4-6) 09/10/24 01:00 09/15/24 00:59 09/10/24 08:10 50 MG DIAGNOSTICS / RADIOLOGY: [ ] ASSESSMENT: [ COPD EXACERBATION, POA STAGE III LUNG CA POA ACUTE ON CHRONIC KIDNEY INJURY POA UNCONTROLLED HYPERTENSION POA HYPERLIPIDEMIA POA] PLAN: CONSULTS: RESEARCH METHODOLOGIST, ONCOLOGIST ANTIBIOTICS: DOXYCYCLINE TESTS: NONE AT THIS MOMENT NEURO: MINIMIZE CENTRAL ACTING MEDICATIONS POSSIBLE. FALL PRECAUTIONS. WELL LIGHTED ROOM THROUGH THE DAY AND MINIMIZE INTERRUPTIONS THROUGH THE NIGHT TO PREVENT ACUTE DELIRIUM. PULMONARY: SUPPLEMENTAL 02 NEEDED BIPAP NECESSARY, FOR RESPIRATORY DISTRESS TITRATE FIO2 TO KEEP SPO2 > OR = 90% DUONEBS AND CPT NEEDED IS HOURLY WHILE AWAKE FOR PULMONARY HYGIENE OUT OF BED TO CHAIR TOLERATED VAP BUNDLE MAINTAIN ASPIRATION PRECAUTIONS AT ALL TIMES CARDIOVASCULAR: FOLLOW HEMODYNAMICS. VITAL SIGNS PER FACILITY PROTOCOL GI & NUTRITION: CONTINUE NUTRITIONAL SUPPORT ASPIRATIONS PRECAUTIONS PROKINETIC AGENTS AND LAXATIVES NEEDED KIDNEYS & ELECTROLYTES: STRICT MONITORING OF INTAKE AND OUTPUT DAILY WEIGHTS AVOID NEPHROTOXIC AGENTS MONITOR ELECTROLYTES AND REPLACE NEEDED GOAL URINE OUTPUT OF 30ML/HR OR 0.5ML/KG/HR MEDICATIONS TO BE DOSED ACCORDING TO RENAL FUNCTION. AVOID CONTRAST IF POSSIBLE ENDOCRINE: MAINTAIN BLOOD GLUCOSE BETWEEN 100-180 AT ALL TIMES. INSULIN SLIDING SCALE FOR BLOOD GLUCOSE MANAGEMENT HYPOGLYCEMIA AND HYPERGLYCEMIA PROTOCOL IN PLACE INFECTIOUS DISEASE: TREND TEMPERATURE, WBC AND PROCALCITONIN LEVEL FOLLOW CULTURES, DEESCALATE ANTIBIOTICS SOON POSSIBLE. PANCULTURE IF NEW ONSET FEVER HEMATOLOGY & COAGULATION: MONITOR H&H. KEEP HGB > 7 TRANSFUSE 1 UNIT OF PRBC FOR HGB < 7 TRANSFUSE 1 PACK OF PLATELETS OF PLATELETS < 20, 000 WATCH FOR ANY SIGNS AND SYMPTOMS OF BLEEDING SKIN: PRESSURE ULCER PREVENTION PER FACILITY PROTOCOL SPECIALTY MATTRESS NEEDED TREATMENT PLAN DISCUSSED WITH PATIENT AND FAMILY AT THE BEDSIDE MEDICATIONS TO BE RECONCILED ONCE OBTAINED BY PATIENT AND/OR FAMILY AND AVAILABLE TO BE RECONCILED IN COMPUTER P.R.N. MEDICATION FOR PAIN NAUSEA AND VOMITING QUESTIONS WERE ANSWERED WE WILL CONTINUE TO MONITOR THE PATIENT CLOSELY AMBULETTE DRIVER FOR DISPOSITION REHAB: PT/OT GI: PPI DVT: SCD'S CODE STATUS: FULL RESUSCITATION DISPOSITION: TBD PROGNOSIS: GUARDED ] ATTESTATION BY PHYSICIAN I have seen and examined the patient. I reviewed the documentation, medical dec ision making, and treatment plan as noted by the mid-level provider above. I agree with the findings and plan of care. Inez Gómez MD, KATARZYNA B RN O[facility]ATIONAL [facility] Sep 10, 2024 14:30
--- NOTE | 2024-09-10 17:34 | CONS ---
[facility] CONSULTATION NOTE Date Patient Seen: Sep 10, 2024 Time of Visit: 17:34 Supervising Physician: [Dr. 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 His labs on admission showed WBC of 7, AST 26, sodium 130 potassium 3.6 and a serum bicarbonate 19, BUN three and creatinine one nine, lactic acid is two two, troponin negative X3, BNP 51 , COVID flu and strep negative. Patient was treated with DuoNebs, Rocephin, solu medrol, reglan and 2L NS in the ED. A CTA of the chest was negative for PE but shows centrilobular emphysema with fibrotic changes to bilateral lower lobes and a small degree of bronchiectasis. No acute infiltrates noted. Patient states he follows Dr. Daniel outpatient pulmonology and is currently on Wixela. He follows with Dr. Rodgers who for his lung cancer and states he is pending PET scan in November 05, 2024, and is not currently undergoing chemo pending imaging. PAST MEDICAL HX: see above PAST SURGICAL HX: noncontributory SOCIAL HISTORY: No tobacco, ETOH, or illicit drug use Coded Allergies: Penicillins (Verified Allergy, Unknown, 03/19/23) codeine (Unverified Allergy, Unknown, 03/19/23) diphenhydramine HCl (Unverified Allergy, Unknown, 03/19/23) Uncoded Allergies: PCN (Allergy, Unknown, 03/19/23) REVIEW OF SYSTEMS: 12 point ROS reviewed with patient. Pertinent positives mentioned above. Otherwise negative. PHYSICAL EXAM: GENERAL: alert, weak, awake oriented x 3 HEENT: EOMI, Sclera non icteric, moist mucosa NECK: Supple, no JVD, trachea midline LUNGS: Clear breath sounds bilaterally. No wheezes HEART: Regular rate and rhythm. Normal S1 and S2, without murmurs ABD: Abdomen soft, nontender. Bowel sounds present EXT: No clubbing cyanosis or edema NEURO: Alert and oriented to person, follows commands Vital Signs (last 8hr) Date Time Temp Pulse Resp B/P (MAP) Pulse Ox O2 Delivery O2 Flow Rate FiO2 09/10/24 12:00 97.9 99 18 153/75 96 Room Air 09/10/24 11:34 88 18 LABS: Hematology Labs: Test 09/10/24 02:03 Range/Units White Blood Count 8.6 4.8-10.8 K/uL Red Blood Count 3.78 L 4.50-6.20 MIL/uL Hemoglobin 11.6 L 14.0-18.0 g/dL Hematocrit 33.6 L 42-54 % Mean Corpuscular Volume 88.9 79-99 fL Mean Corpuscular Hemoglobin 30.7 27.0-33.0 pg Mean Corpuscular Hemoglobin Concent 34.5 32.0-36.0 g/dL Red Cell Distribution Width 13.2 11.0-15.5 % Platelet Count 215 130-400 K/uL Mean Platelet Volume 8.7 7.5-10.5 fL Immature Granulocyte % (Auto) 0.6 0-1 % Neutrophils (%) (Auto) 90.2 H 40.0-77.0 % Lymphocytes (%) (Auto) 7.7 L 21.0-51.0 % Monocytes (%) (Auto) 1.3 L 3.0-13.0 % Eosinophils (%) (Auto) 0.1 0.0-8.0 % Basophils (%) (Auto) 0.1 0.0-5.0 % Neutrophils # (Auto) 7.8 H 1.8-7.7 K/uL Lymphocytes # (Auto) 0.7 L 1.0-4.8 K/uL Monocytes # (Auto) 0.1 0.1-1.0 K/uL Eosinophils # (Auto) 0.01 0.00-0.70 K/uL Basophils # (Auto) 0.01 0.00-0.20 K/uL Absolute Immature Granulocyte (auto 0.05 0-1 K/uL Nucleated Red Blood Cells 0.0 0.0-0.19 % White Cell Morphology Comment See comments Chemistry Labs: Test 09/10/24 02:03 09/09/24 21:41 Range/Units Sodium Level 129 L 136-145 mmol/L Potassium Level 3.4 L 3.5-5.1 mmol/L Chloride Level 98 L 101-111 mmol/L Carbon Dioxide Level 19 L 21-32 mmol/L Blood Urea Nitrogen 19 H 7-18 mg/dL Creatinine 1.8 H 0.5-1.3 mg/dL Glomerular Filtration Rate Calc 40 >90 mL/min Random Glucose 135 #H 70-105 mg/dL Lactic Acid Level 2.3 0.8-2.5 mmol/L Total Calcium 8.5 8.5-10.1 mg/dL Phosphorus Level 2.3 L 2.5-4.9 mg/dL Magnesium Level 2.00 1.80-2.40 mg/dL Total Creatine Kinase 95 # 21-232 U/L Troponin I High Sensitivity 30.1 4-75 ng/L B-Type Natriuretic Peptide 51 0-100 pg/mL DIAGNOSTICS / RADIOLOGY RESULTS: CT CHEST PE PROTOCOL O CONT HISTORY: Hypoxia COMPARISON: 01/28/2023 TECHNIQUE: CT angiography of the chest was performed. The study was performed using angiographic technique with maximum intensity projection reconstruction images. Patient was given 75 cc of Omnipaque through intravenous route. FINDINGS: No CT evidence of filling defect is seen to suggest pulmonary embolus. No CT evidence of aortic dissection is seen. There are mild interstitial fibrosis. No evidence of parenchymal disease is seen. No CT evidence of pleural effusion or pericardial effusion is seen. The heart is enlarged. No evidence of adrenal mass is seen. Degenerative changes of the spine are noted. There is right renal cyst measuring 2 cm. IMPRESSION: 1. No CT evidence of acute pulmonary embolus is seen. PLAN NEURO: Minimize central acting medications as possible. Maintain fall precautions, adequate lighting during the day PULMONARY: Supplemental 02 as needed. Maintain aspiration precautions at all times CARDIOVASCULAR: Follow hemodynamics. Vital signs per facility protocol GI & NUTRITION: Continue with nutritional support. Continue stool softeners and laxatives as needed. KIDNEYS & ELECTROLYTES: Strict monitoring of intake, output and overall fluid balance. Avoid nephrotoxic medications to the extent possible. Medications to be dosed according to renal function. Monitor electrolytes and replace as needed ENDOCRINE: Maintain blood glucose between 100-180 at all times. Hypoglycemia protocol in place INFECTIOUS DISEASE: Trend temperature, WBC and procalcitonin level Follow cultures, deescalate antibiotics as soon as possible. Panculture if new onset fever ONCOLOGY/HEMATOLOGY/COAGULATION: Monitor for s/s of bleeding Monitor hemoglobin, coagulation studies as needed SKIN: Pressure ulcer prevention per facility protocol Specialty mattress ORTHO/REHAB: Continue PT/OT Prophylaxis: Continue GI and DVT prophylaxis Code Status: Full Resuscitation Disposition: TBD Other: Total patient care time exceeds 35 minutes excluding all procedures. XIMENA SANCHEZ Sep 10, 2024 17:34
[2024-09-10] MEDS: PoTASSium chloRIDE 20MEQ ER 20 MEQ ERTAB PO ONE (18:15)
[2024-09-10] MEDS: DOXYCYCLINE 100MG+NS 250ML 250 ML IV SCH (18:16)
[2024-09-10] MEDS: atorVAStatin 20 MG TABLET PO SCH (20:25)
[2024-09-10] MEDS: APIXaban 5 MG TABLET PO SCH (20:25)
[2024-09-10] MEDS: fluTICasone/viLANTerol 1 EACH BLST.W.DEV IH SCH (20:26)
[2024-09-11] VITALS (11 sets, daily range): BP systolic 148–169; BP diastolic 72–81; PULSE 66–81; RESP 18–20; TEMP 97.6–98.2; O2SAT 96–100
[2024-09-11 03:23] LABS: ABG BASE EXCESS -4.4 mmol/L (-2.0-3.0); ABG PCO2 31 mmHg (35-48); DEVICE COMMENT RN, RR; VENT MODE, BG 2LNC (ROOM AIR)
[2024-09-11 04:02] LABS: BASOPHILS # (AUTO) 0.01 K/uL (0.00-0.20); BASOPHILS % (AUTO) 0.1 % (0.0-5.0); EOSINOPHILS # (AUTO) 0.01 K/uL (0.00-0.70); EOSINOPHILS % (AUTO) 0.1 % (0.0-8.0); HEMATOCRIT 28.9 % (42-54); IMMATURE GRANULOCYTE ABSOLUTE 0.06 K/uL (0-1); LYMPHOCYTES # (AUTO) 0.6 K/uL (1.0-4.8); LYMPHOCYTES % (AUTO) 5.8 % (21.0-51.0); MEAN CORPUSCULAR HEMOGLOBIN 30.1 pg (27.0-33.0); MEAN CORPUSCULAR HGB CONC 34.3 g/dL (32.0-36.0); MEAN CORPUSCULAR VOLUME 87.8 fL (79-99); MONOCYTES # (AUTO) 0.6 K/uL (0.1-1.0); MONOCYTES % (AUTO) 5.5 % (3.0-13.0); NEUTROPHILS % (AUTO) 87.9 % (40.0-77.0); PLATELET COUNT (AUTO) 185 K/uL (130-400); RED BLOOD CELL COUNT(AUTO) 3.29 MIL/uL (4.50-6.20); RED CELL DISTRIBUTION WIDTH 13.4 % (11.0-15.5); WHITE BLOOD COUNT (AUTO) 10.3 K/uL (4.8-10.8)
[2024-09-11 04:22] LABS: ALBUMIN 3.2 g/dL (3.5-5.0); BILIRUBIN,TOTAL 0.3 mg/dL (0.2-1.0); CREATININE 1.4 mg/dL (0.5-1.3); MAGNESIUM 1.9 mg/dL (1.80-2.40); POTASSIUM 4.5 mmol/L (3.5-5.1); TOTAL PROTEIN, SERUM 6.2 g/dL (6.0-8.3)
[2024-09-11] MEDS: levoTHYROxine 75 MCG TABLET PO SCH (05:31)
[2024-09-11] MEDS: FOLic ACID 1 MG TABLET PO SCH (08:10)
[2024-09-11] MEDS: nifeDIPine ER 30 MG TAB PO SCH (08:11)
--- NOTE | 2024-09-11 12:22 | PN ---
[facility] PROGRESS NOTE Date of Service: Sep 11, 2024 Time of Service: 12:[address] Gómez SUBJECTIVE: [Mr. Reagan is a 69-year-old male that was seen and examined today on 09/10/2024. Patient is a good historian and personal health. Patient's sister Sharon Reagan is at bedside. Patient reports that he came to the emergency department with a chief complaint of shortness of breath. Onset was one week ago. Location is to lungs. Duration is on and off. Symptoms are aggravated with lifting objects and excessive walking. Symptoms are mildly alleviated with rest. Patient reports associated lightheadedness. Character is described as" like I can not catch my breath. "Today in the emergency department CBC unremarkable, BUN 23, creatinine 1.9. Patient reports that last chemotherapy was 101 month ago. Patient reports he has a PET scan scheduled for October 2024. Patient follows Dr. Rodgers for Oncology Services in the outpatient setting. Emergency room physician recommended that patient be admitted with a diagnosis of COPD exacerbation. 09/10 patient was seen by nurse practitioner and physician during rounding in room 304. Chest x-ray showed negative. CT chest was negative for PE. Patient continues to complain of shortness of breaths. At this moment patient is 2 L nasal cannula. Patient is AFib controlled on Eliquis. Solu-Medrol 40 mg equivalents q.8 hours was ordered. We will also add doxycycline antibiotic. We are pending further evaluation of oncologist and sodium chlorite operator. We will continue to monitor patient in the meantime. A.m. labs. 09/11 patient was seen by nurse practitioner and physician during rounding in room 304. Patient stated that he feels better compared to the previous day but is still short of breaths. Per sodium chlorite operator Solu-Medrol 40 mEq q.8 hours was stopped. Patient continues to be on doxycycline in the meantime. PT to evaluate the patient. We anticipated discharge within 24 hours. A.m. labs] REVIEW OF SYSTEMS CONSTITUTIONAL: Denies fevers, chills, or night sweats. No unintentional weight loss reported. NEUROLOGICAL: Denies headache, amaurosis fugax, motor weakness, sensory deficit, vertigo/spinning sensation, gait abnormalities, or tremors. ENT: No hearing loss, otalgia, otorrhea, rhinitis, rhinorrhea, hoarseness, or sore throat. CARDIOVASCULAR: Denies any exertional angina, dyspnea on exertion, orthopnea, paroxysmal nocturnal dyspnea, palpitations, life-threatening arrhythmias, claudication. PULMONARY: Denies any shortness of breath, cough, phlegm/sputum, hemoptysis, pleuritic chest pain. SLEEP: Denies morning headaches, daytime somnolence or napping. Denies difficulty falling asleep, staying asleep, waking from sleep. Denies knowledge of snoring. GASTROINTESTINAL: Denies any type of dysphagia to either liquids or solids. Denies nausea, vomiting, pyrosis, early satiety, abdominal pain, diarrhea, constipation, or changes in stool consistency or caliber. Denies coffee-ground emesis, hematemesis, hematochezia, or melanotic stools. GENITOURINARY: Denies frequency, urgency, nocturia, hematuria or incontinence (Storage/Irritative symptoms.) Low urinary stream, straining to void, urinary intermittency or hesitancy, splitting of the voiding stream, terminal dribbling. ENDOCRINOLOGIC: Denies polyuria, polydipsia, polyphagia or heat/cold intolerances. HEMATOLOGIC: Denies thrombophilia/previous clots, or coagulopathy/bleeding disorders. ONCOLOGIC: Denies personal history of malignancy. DERMATOLOGIC: Denies rashes or pruritus. PSYCHIATRIC: Denies any suicidal or homicidal ideation. Denies hallucinations. PHYSICAL EXAM GENERAL APPEARANCE: The patient is awake, alert, and oriented, in no acute cardiopulmonary distress. NEUROLOGICAL: Cranial nerves II-XII grossly intact. Motor is 5/5 in bilateral upper and lower extremities proximal to distal. No sensory deficits. HEENT: Face is symmetric. Pupils are equal and reactive. Extraocular movements are intact. NECK: Supple. No JVD. No thyromegaly. No submental, submandibular, pre- /postauricular, occipital or supraclavicular lymphadenopathy. CHEST: Normal chest expansion. No Telemetry. LUNGS: Absence of any rales, rhonchi or any wheezing. CARDIOVASCULAR: Regular. S1 and S2 normal. No appreciable rubs, murmurs or gallops. ABDOMEN: Soft, nontender, and nondistended. There is no rebound, voluntary guarding, or rigidity. : Deferred. No Zamarripa. EXTREMITIES: Non-edematous and not cyanotic. No clubbing. Good capillary refill. SKIN: No skin breakdown. Vital Signs (last 8hr) Date Time Temp Pulse Resp B/P (MAP) Pulse Ox O2 Delivery O2 Flow Rate FiO2 09/11/24 12:00 98.1 74 20 164/81 99 Room Air 09/11/24 08:00 Nasal Cannula* 2 28 09/11/24 08:00 97.9 81 18 148/72 97 Room Air 09/11/24 07:56 70 18 N/Cannula Low lpm 2.0 09/11/24 07:17 66 18 LABS: Laboratory: Test 09/11/24 03:50 09/11/24 03:21 09/10/24 02:03 09/09/24 23:02 Range/Units White Blood Count 10.3 4.8-10.8 K/uL Red Blood Count 3.29 L 4.50-6.20 MIL/uL Hemoglobin 9.9 L 14.0-18.0 g/dL Hematocrit 28.9 L 42-54 % Mean Corpuscular Volume 87.8 79-99 fL Mean Corpuscular Hemoglobin 30.1 27.0-33.0 pg Mean Corpuscular Hemoglobin Concent 34.3 32.0-36.0 g/dL Red Cell Distribution Width 13.4 11.0-15.5 % Platelet Count 185 130-400 K/uL Mean Platelet Volume 8.9 7.5-10.5 fL Immature Granulocyte % (Auto) 0.6 0-1 % Neutrophils (%) (Auto) 87.9 H 40.0-77.0 % Lymphocytes (%) (Auto) 5.8 L 21.0-51.0 % Monocytes (%) (Auto) 5.5 3.0-13.0 % Eosinophils (%) (Auto) 0.1 0.0-8.0 % Basophils (%) (Auto) 0.1 0.0-5.0 % Neutrophils # (Auto) 9.0 H 1.8-7.7 K/uL Lymphocytes # (Auto) 0.6 L 1.0-4.8 K/uL Monocytes # (Auto) 0.6 0.1-1.0 K/uL Eosinophils # (Auto) 0.01 0.00-0.70 K/uL Basophils # (Auto) 0.01 0.00-0.20 K/uL Absolute Immature Granulocyte (auto 0.06 0-1 K/uL Nucleated Red Blood Cells 0.0 0.0-0.19 % Sodium Level 132 L 136-145 mmol/L Potassium Level 4.5 3.5-5.1 mmol/L Chloride Level 101 101-111 mmol/L Carbon Dioxide Level 24 21-32 mmol/L Blood Urea Nitrogen 16 7-18 mg/dL Creatinine 1.4 H 0.5-1.3 mg/dL Glomerular Filtration Rate Calc 54 >90 mL/min Random Glucose 131 H 70-105 mg/dL Total Calcium 8.3 L 8.5-10.1 mg/dL Magnesium Level 1.90 1.80-2.40 mg/dL Total Bilirubin 0.3 0.2-1.0 mg/dL Aspartate Amino Transf (AST/SGOT) 11 10-37 U/L Alanine Aminotransferase (ALT/SGPT) 17 12-78 U/L Alkaline Phosphatase 80 50-136 U/L Total Protein 6.2 6.0-8.3 g/dL Albumin 3.2 L 3.5-5.0 g/dL Blood Gas Specimen Type Arterial Arterial Blood pH 7.410 7.350-7.450 Arterial Blood Partial Pressure CO2 31 L 35-48 mmHg Arterial Blood Partial Pressure O2 108.0 83.0-108.0 mmHg Arterial Blood HCO3 19.0 L 21.0-28.0 mmol/L Arterial Blood Oxygen Saturation 98.0 94.0-98.0 % Arterial Blood Base Excess -4.4 L -2.0-3.0 mmol/L Blood Gas Temperature 37.0 35.5-37.0 CELSIUS Blood Gas Flow-by 2.00 0.00-15.00 L/min Blood Gas Vent Mode 2LNC ROOM AIR FiO2 28.0 % Blood Gas Specimen Comment RN, RR White Cell Morphology Comment See comments Lactic Acid Level 2.3 0.8-2.5 mmol/L Phosphorus Level 2.3 L 2.5-4.9 mg/dL Urine Random Creatinine 66.25 30-135 mg/dL Urine Random Sodium 118 40-220 mmol/l Test 09/09/24 22:22 09/09/24 21:41 09/09/24 21:40 Range/Units Venous Blood pH 7.513 H 7.320-7.430 Venous Blood pCO2 at Patient Temp 22 L 38-54 Venous Blood pO2 at Patient Temp 58.7 H 23.0-48.0 mmHg Venous Blood HCO3 17.4 L 22.0-29.0 Venous Blood Base Excess -3.3 L -2.0-3.0 Total Creatine Kinase 95 # 21-232 U/L Troponin I High Sensitivity 30.1 4-75 ng/L B-Type Natriuretic Peptide 51 0-100 pg/mL Influenza Type A Antigen Negative For Type A NEGATIVE Influenza Type B Antigen Negative For Type B NEGATIVE SARS-CoV-2, RNA, NAAT NEGATIVE SARS CoV-2 NEGATIVE Group A Streptococcus Rapid negative NEGATIVE Current Medications Medications (Trade) Dose Ordered Sig/Leslie Route PRN Reason Start Time Stop Time Status Last Admin Dose Admin Acetaminophen (TYLenol 325MG TAB) 650 mg Q6H PRN PO TEMPERATURE GREATER THAN 101.5 09/10/24 01:00 10/10/24 00:59 09/10/24 01:57 650 MG Albuterol (DUOneb) 1 UDVIAL [id number] IH 09/10/24 06:00 10/10/24 05:59 09/11/24 11:19 1 UDVIAL Apixaban (EliquIS) 5 mg BID PO 09/10/24 21:00 10/10/24 20:59 09/11/24 08:11 5 MG Atorvastatin Calcium (LIPItor 20MG) 20 mg HS PO 09/10/24 21:00 10/10/24 20:59 09/10/24 20:25 20 MG Doxycycline Hyclate 250 ml @ 125 mls/hr Q12H IV 09/10/24 14:30 09/10/24 17:19 DC Doxycycline Hyclate 250 ml @ 125 mls/hr Q12H IV 09/10/24 17:30 09/20/24 17:29 09/11/24 04:43 125 MLS/HR Enoxaparin Sodium (Lovenox) 40 mg DAILY SQ 09/10/24 09:00 09/11/24 08:13 DC 09/10/24 08:11 40 MG Fluticasone/ Vilanterol (BrEO ELLiptA 200-25 MCG INH) 1 PUFF DAILY IH 09/10/24 21:00 10/10/24 20:59 09/10/24 20:26 1 EACH Folic Acid (FOLic ACID 1 MG TABLET) 1 mg DAILY PO 09/11/24 09:00 10/11/24 08:59 09/11/24 08:10 1 MG Guaifenesin/ Dextromethorphan (RobiTUSSin DM 200/20MG 10ML) 10 ml Q4H PRN PO COUGH 09/10/24 01:00 10/10/24 00:59 Hydralazine HCl (APRESOLine 20MG INJ) 10 mg Q6H PRN IV For:SBP above 160;DBP above 90 09/10/24 01:00 10/10/24 00:59 Lactated Ringer's 1,000 ml @ 75 mls/hr [id number] IV 09/10/24 01:00 10/10/24 00:59 09/10/24 19:43 75 MLS/HR Levothyroxine Sodium (SYNTHroid 75MCG TAB) 75 mcg SYN PO 09/11/24 06:30 10/11/24 06:29 09/11/24 05:31 75 MCG Methylprednisolone Sodium Succinate (Solu-medROL 40MG) 40 mg Q8H IVP 09/10/24 06:00 09/10/24 08:14 DC Methylprednisolone Sodium Succinate (Solu-medROL 40MG) 40 mg Q8H IVP 09/10/24 08:30 09/10/24 20:22 DC 09/10/24 18:16 40 MG Nifedipine (adALAT 30MG) 30 mg DAILY PO 09/11/24 09:00 10/11/24 08:59 09/11/24 08:11 30 MG Ondansetron HCl (zoFRAN 4MG INJ) 4 mg Q6H PRN IV NAUSEA/VOMITING 09/10/24 01:00 10/10/24 00:59 Pantoprazole Sodium (PROTonix 40MG TAB) 40 mg DAILY PO 09/10/24 09:00 10/10/24 08:59 09/11/24 08:10 40 MG Tramadol HCl (UltRAM) 50 mg Q6H PRN PO MODERATE PAIN (4-6) 09/10/24 01:00 09/15/24 00:59 09/10/24 19:44 50 MG DIAGNOSTICS / RADIOLOGY: [ ] ASSESSMENT: [ COPD EXACERBATION, POA Acute on chronic hypoxic respiratory failure POA STAGE III LUNG CA POA ACUTE ON CHRONIC KIDNEY INJURY POA Multifactorial anemia POA Electrolyte imbalance hyponatremia Na 132 hypokalemia K 3.4 UNCONTROLLED HYPERTENSION POA HYPERLIPIDEMIA POA] PLAN: CONSULTS: NARCOTICS DETECTIVE, ONCOLOGIST ANTIBIOTICS: DOXYCYCLINE TESTS: NONE AT THIS MOMENT NEURO: MINIMIZE CENTRAL ACTING MEDICATIONS POSSIBLE. FALL PRECAUTIONS. WELL LIGHTED ROOM THROUGH THE DAY AND MINIMIZE INTERRUPTIONS THROUGH THE NIGHT TO PREVENT ACUTE DELIRIUM. PULMONARY: SUPPLEMENTAL 02 NEEDED BIPAP NECESSARY, FOR RESPIRATORY DISTRESS TITRATE FIO2 TO KEEP SPO2 > OR = 90% DUONEBS AND CPT NEEDED IS HOURLY WHILE AWAKE FOR PULMONARY HYGIENE OUT OF BED TO CHAIR TOLERATED VAP BUNDLE MAINTAIN ASPIRATION PRECAUTIONS AT ALL TIMES CARDIOVASCULAR: FOLLOW HEMODYNAMICS. VITAL SIGNS PER FACILITY PROTOCOL GI & NUTRITION: CONTINUE NUTRITIONAL SUPPORT ASPIRATIONS PRECAUTIONS PROKINETIC AGENTS AND LAXATIVES NEEDED KIDNEYS & ELECTROLYTES: STRICT MONITORING OF INTAKE AND OUTPUT DAILY WEIGHTS AVOID NEPHROTOXIC AGENTS MONITOR ELECTROLYTES AND REPLACE NEEDED GOAL URINE OUTPUT OF 30ML/HR OR 0.5ML/KG/HR MEDICATIONS TO BE DOSED ACCORDING TO RENAL FUNCTION. AVOID CONTRAST IF POSSIBLE ENDOCRINE: MAINTAIN BLOOD GLUCOSE BETWEEN 100-180 AT ALL TIMES. INSULIN SLIDING SCALE FOR BLOOD GLUCOSE MANAGEMENT HYPOGLYCEMIA AND HYPERGLYCEMIA PROTOCOL IN PLACE INFECTIOUS DISEASE: TREND TEMPERATURE, WBC AND PROCALCITONIN LEVEL FOLLOW CULTURES, DEESCALATE ANTIBIOTICS SOON POSSIBLE. PANCULTURE IF NEW ONSET FEVER HEMATOLOGY & COAGULATION: MONITOR H&H. KEEP HGB > 7 TRANSFUSE 1 UNIT OF PRBC FOR HGB < 7 TRANSFUSE 1 PACK OF PLATELETS OF PLATELETS < 20, 000 WATCH FOR ANY SIGNS AND SYMPTOMS OF BLEEDING SKIN: PRESSURE ULCER PREVENTION PER FACILITY PROTOCOL SPECIALTY MATTRESS NEEDED TREATMENT PLAN DISCUSSED WITH PATIENT AND FAMILY AT THE BEDSIDE MEDICATIONS TO BE RECONCILED ONCE OBTAINED BY PATIENT AND/OR FAMILY AND AVAILABLE TO BE RECONCILED IN COMPUTER P.R.N. MEDICATION FOR PAIN NAUSEA AND VOMITING QUESTIONS WERE ANSWERED WE WILL CONTINUE TO MONITOR THE PATIENT CLOSELY MEDICAL LABORATORY SPECIALIST FOR DISPOSITION REHAB: PT/OT GI: PPI DVT: SCD'S CODE STATUS: FULL RESUSCITATION DISPOSITION: TBD PROGNOSIS: GUARDED ] ATTESTATION BY PHYSICIAN I have seen and examined the patient. I reviewed the documentation, medical decision making, and treatment plan as noted by the mid-level provider above. I agree with the findings and plan of care. Inez Gómez MD, KATARZYNA B NURSE UNIT MANAGER Sep 11, 2024 12:22
--- NOTE | 2024-09-11 13:52 | PN ---
[facility] PROGRESS NOTE Date Patient Seen: Sep 11, 2024 Time of Visit: 13:49 Supervising Physician: [Dr. 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 His ABG is within normal limits with a pH of 7.41, pCO2 of 31, PO2 of 108 and bicarb of 19. Serum bicarb is improved to , BNP much improved with sodium of 132 and creatinine of 1.4, no other electrolyte derangement. LFTs within normal limits. COVID, flu and strep are negative. Blood cultures negative. CTA of the chest was negative for PE.] REVIEW OF SYSTEMS: 12 point ROS reviewed with patient. Pertinent positives mentioned above. Otherwise negative. PHYSICAL EXAM: GENERAL: alert, weak, awake oriented x 3 HEENT: EOMI, Sclera non icteric, moist mucosa NECK: Supple, no JVD, trachea midline LUNGS: Clear breath sounds bilaterally. No wheezes HEART: Regular rate and rhythm. Normal S1 and S2, without murmurs ABD: Abdomen soft, nontender. Bowel sounds present EXT: No clubbing cyanosis or edema NEURO: Alert and oriented to person, follows commands Vital Signs (last 8hr) Date Time Temp Pulse Resp B/P (MAP) Pulse Ox O2 Delivery O2 Flow Rate FiO2 09/11/24 12:00 98.1 74 20 164/81 99 Room Air 09/11/24 11:19 72 18 09/11/24 08:00 Nasal Cannula* 2 28 09/11/24 08:00 97.9 81 18 148/72 97 Room Air 09/11/24 07:56 70 18 N/Cannula Low lpm 2.0 09/11/24 07:17 66 18 LABS: Hematology Labs: Test 09/11/24 03:50 09/10/24 02:03 Range/Units White Blood Count 10.3 4.8-10.8 K/uL Red Blood Count 3.29 L 4.50-6.20 MIL/uL Hemoglobin 9.9 L 14.0-18.0 g/dL Hematocrit 28.9 L 42-54 % Mean Corpuscular Volume 87.8 79-99 fL Mean Corpuscular Hemoglobin 30.1 27.0-33.0 pg Mean Corpuscular Hemoglobin Concent 34.3 32.0-36.0 g/dL Red Cell Distribution Width 13.4 11.0-15.5 % Platelet Count 185 130-400 K/uL Mean Platelet Volume 8.9 7.5-10.5 fL Immature Granulocyte % (Auto) 0.6 0-1 % Neutrophils (%) (Auto) 87.9 H 40.0-77.0 % Lymphocytes (%) (Auto) 5.8 L 21.0-51.0 % Monocytes (%) (Auto) 5.5 3.0-13.0 % Eosinophils (%) (Auto) 0.1 0.0-8.0 % Basophils (%) (Auto) 0.1 0.0-5.0 % Neutrophils # (Auto) 9.0 H 1.8-7.7 K/uL Lymphocytes # (Auto) 0.6 L 1.0-4.8 K/uL Monocytes # (Auto) 0.6 0.1-1.0 K/uL Eosinophils # (Auto) 0.01 0.00-0.70 K/uL Basophils # (Auto) 0.01 0.00-0.20 K/uL Absolute Immature Granulocyte (auto 0.06 0-1 K/uL Nucleated Red Blood Cells 0.0 0.0-0.19 % White Cell Morphology Comment See comments Chemistry Labs: Test 09/11/24 03:50 09/10/24 02:03 09/09/24 21:41 Range/Units Sodium Level 132 L 136-145 mmol/L Potassium Level 4.5 3.5-5.1 mmol/L Chloride Level 101 101-111 mmol/L Carbon Dioxide Level 24 21-32 mmol/L Blood Urea Nitrogen 16 7-18 mg/dL Creatinine 1.4 H 0.5-1.3 mg/dL Glomerular Filtration Rate Calc 54 >90 mL/min Random Glucose 131 H 70-105 mg/dL Total Calcium 8.3 L 8.5-10.1 mg/dL Magnesium Level 1.90 1.80-2.40 mg/dL Total Bilirubin 0.3 0.2-1.0 mg/dL Aspartate Amino Transf (AST/SGOT) 11 10-37 U/L Alanine Aminotransferase (ALT/SGPT) 17 12-78 U/L Alkaline Phosphatase 80 50-136 U/L Total Protein 6.2 6.0-8.3 g/dL Albumin 3.2 L 3.5-5.0 g/dL Lactic Acid Level 2.3 0.8-2.5 mmol/L Phosphorus Level 2.3 L 2.5-4.9 mg/dL Total Creatine Kinase 95 # 21-232 U/L Troponin I High Sensitivity 30.1 4-75 ng/L B-Type Natriuretic Peptide 51 0-100 pg/mL DIAGNOSTICS / RADIOLOGY RESULTS: [Reviewed] PLAN NEURO: Minimize central acting medications as possible. Maintain fall precautions, adequate lighting during the day PULMONARY: Supplemental 02 as needed. Maintain aspiration precautions at all times CARDIOVASCULAR: Follow hemodynamics. Vital signs per facility protocol GI & NUTRITION: Continue with nutritional support. Continue stool softeners and laxatives as needed. KIDNEYS & ELECTROLYTES: Strict monitoring of intake, output and overall fluid balance. Avoid nephrotoxic medications to the extent possible. Medications to be dosed according to renal function. Monitor electrolytes and replace as needed ENDOCRINE: Maintain blood glucose between 100-180 at all times. Hypoglycemia protocol in place INFECTIOUS DISEASE: Trend temperature, WBC and procalcitonin level Follow cultures, deescalate antibiotics as soon as possible. Panculture if new onset fever ONCOLOGY/HEMATOLOGY/COAGULATION: Monitor for s/s of bleeding Monitor hemoglobin, coagulation studies as needed SKIN: Pressure ulcer prevention per facility protocol Specialty mattress ORTHO/REHAB: Continue PT/OT Prophylaxis: Continue GI and DVT prophylaxis Code Status: Full Resuscitation Disposition: TBD Other: Total patient care time exceeds 35 minutes excluding all procedures. XIMENA SANCHEZ Sep 11, 2024 13:52
[2024-09-11] MEDS: IpraTROPium 0.5 MG/2.5 ML INH IH SCH (19:04)
--- NOTE | 2024-09-11 19:52 | CONS ---
HISTORY OF PRESENT ILLNESS: This is a 69-year-old male patient with history of lung cancer, who was on chemotherapy, now he is on maintenance immunotherapy. Last dose was given about a month ago. He also has a history of COPD and atrial fibrillation who is on oxygen at home. He was brought to the ER with complaints of significant shortness of breath and dizziness. He is feeling better today. He also reported productive cough, but denies any fever or chills. No hemoptysis. No chest pain. On chest CT scan, there is no evidence of acute pulmonary embolism. There are mild interstitial fibrosis. No infiltrates or pleural effusion. PHYSICAL EXAMINATION: TODAY VITAL SIGNS: Stable, afebrile. GENERAL: The patient is alert, in no acute distress, on oxygen per nasal cannula. HEART: Regular and rhythmic. LUNGS: With diminished breathing sounds in both bases with occasional wheezing. No crackles. ABDOMEN: Soft, nontender. No organomegaly. Bowel sounds present. EXTREMITIES: No pedal edema. No calf tenderness. LABORATORY DATA: WBC 10.3, hemoglobin 9.9, platelet count 185. Sodium 132, potassium 4.5, BUN 16, creatinine 1.4. ASSESSMENT: * Chronic obstructive pulmonary disease exacerbation. * History of lung cancer. * History of atrial fibrillation. PLAN: The patient remained stable, improving gradually. He will continue on oxygen. Continue on IV antibiotics. Continue on bronchodilators. Continue corticosteroids. No need for further treatment. I will follow him at the office once he is discharged. TID: [id number] RECEIPT: [id number]
[2024-09-12] VITALS (7 sets, daily range): BP systolic 127–142; BP diastolic 65–76; PULSE 67–79; RESP 18–20; TEMP 97.9–98.5; O2SAT 98–100
[2024-09-12 06:12] LABS: BASOPHILS # (AUTO) 0.02 K/uL (0.00-0.20); BASOPHILS % (AUTO) 0.3 % (0.0-5.0); EOSINOPHILS # (AUTO) 0.06 K/uL (0.00-0.70); EOSINOPHILS % (AUTO) 0.9 % (0.0-8.0); HEMATOCRIT 29.6 % (42-54); IMMATURE GRANULOCYTE ABSOLUTE 0.03 K/uL (0-1); LYMPHOCYTES # (AUTO) 1.6 K/uL (1.0-4.8); LYMPHOCYTES % (AUTO) 22.9 % (21.0-51.0); MEAN CORPUSCULAR HEMOGLOBIN 30.3 pg (27.0-33.0); MEAN CORPUSCULAR HGB CONC 34.5 g/dL (32.0-36.0); MEAN CORPUSCULAR VOLUME 87.8 fL (79-99); MONOCYTES # (AUTO) 0.6 K/uL (0.1-1.0); MONOCYTES % (AUTO) 8.4 % (3.0-13.0); NEUTROPHILS # (AUTO) 4.6 K/uL (1.8-7.7); NEUTROPHILS % (AUTO) 67.1 % (40.0-77.0); PLATELET COUNT (AUTO) 205 K/uL (130-400); RED BLOOD CELL COUNT(AUTO) 3.37 MIL/uL (4.50-6.20); RED CELL DISTRIBUTION WIDTH 13.3 % (11.0-15.5); WHITE BLOOD COUNT (AUTO) 6.8 K/uL (4.8-10.8)
[2024-09-12 06:30] LABS: ALBUMIN 3.2 g/dL (3.5-5.0); BILIRUBIN,TOTAL 0.4 mg/dL (0.2-1.0); CREATININE 1.4 mg/dL (0.5-1.3); MAGNESIUM 1.8 mg/dL (1.80-2.40); POTASSIUM 4.5 mmol/L (3.5-5.1); TOTAL PROTEIN, SERUM 5.9 g/dL (6.0-8.3)
--- NOTE | 2024-09-12 09:49 | PN ---
[facility] PROGRESS NOTE Date Patient Seen: Sep 12, 2024 Time of Visit: 09:46 Supervising Physician: [Dr. 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 His ABG is within normal limits with a pH of 7.41, pCO2 of 31, PO2 of 108 and bicarb of 19. Serum bicarb is improved to , BNP much improved with sodium of 132 and creatinine of 1.4, no other electrolyte derangement. LFTs within normal limits. COVID, flu and strep are negative. Blood cultures negative. CTA of the chest was negative for PE.] 09/12 patient is evaluated at bedside. Blood pressure is 127/65 with a heart rate of 67, afebrile. Patient continues on baseline home O2 use at 2 L NC. His respiratory status has improved significantly since admission, no current cough or fever. His WBC is 6, hemoglobin 10, platelets 205. ABG from yesterday is within normal limits with a pH of 7.41, pCO2 of 31, PO2 of 108 and bicarb of 19. CMP is within normal limits with a creatinine of 1.4, no electrolyte derangement. Blood cultures are negative. Patient has good air intake bilaterally, no wheezing, rales or rhonchi appreciated. He is cleared for discharge from pulmonary standpoint. We will recommend a short course of steroids upon discharge. REVIEW OF SYSTEMS: 12 point ROS reviewed with patient. Pertinent positives mentioned above. Otherwise negative. PHYSICAL EXAM: GENERAL: alert, weak, awake oriented x 3 HEENT: EOMI, Sclera non icteric, moist mucosa NECK: Supple, no JVD, trachea midline LUNGS: Clear breath sounds bilaterally. No wheezes HEART: Regular rate and rhythm. Normal S1 and S2, without murmurs ABD: Abdomen soft, nontender. Bowel sounds present EXT: No clubbing cyanosis or edema NEURO: Alert and oriented to person, follows commands Vital Signs (last 8hr) Date Time Temp Pulse Resp B/P (MAP) Pulse Ox O2 Delivery O2 Flow Rate FiO2 09/12/24 08:00 98.2 67 19 127/65 100 Nasal Cannula 2.0 09/12/24 07:12 70 18 09/12/24 07:12 18 N/Cannula Low lpm 2.0 09/12/24 03:45 98.2 70 18 142/76 100 Nasal Cannula 2.0 LABS: Hematology Labs: Test 09/12/24 05:54 Range/Units White Blood Count 6.8 4.8-10.8 K/uL Red Blood Count 3.37 L 4.50-6.20 MIL/uL Hemoglobin 10.2 L 14.0-18.0 g/dL Hematocrit 29.6 L 42-54 % Mean Corpuscular Volume 87.8 79-99 fL Mean Corpuscular Hemoglobin 30.3 27.0-33.0 pg Mean Corpuscular Hemoglobin Concent 34.5 32.0-36.0 g/dL Red Cell Distribution Width 13.3 11.0-15.5 % Platelet Count 205 130-400 K/uL Mean Platelet Volume 8.7 7.5-10.5 fL Immature Granulocyte % (Auto) 0.4 0-1 % Neutrophils (%) (Auto) 67.1 40.0-77.0 % Lymphocytes (%) (Auto) 22.9 21.0-51.0 % Monocytes (%) (Auto) 8.4 3.0-13.0 % Eosinophils (%) (Auto) 0.9 0.0-8.0 % Basophils (%) (Auto) 0.3 0.0-5.0 % Neutrophils # (Auto) 4.6 1.8-7.7 K/uL Lymphocytes # (Auto) 1.6 1.0-4.8 K/uL Monocytes # (Auto) 0.6 0.1-1.0 K/uL Eosinophils # (Auto) 0.06 0.00-0.70 K/uL Basophils # (Auto) 0.02 0.00-0.20 K/uL Absolute Immature Granulocyte (auto 0.03 0-1 K/uL Nucleated Red Blood Cells 0.0 0.0-0.19 % Chemistry Labs: Test 09/12/24 05:54 Range/Units Sodium Level 137 136-145 mmol/L Potassium Level 4.5 3.5-5.1 mmol/L Chloride Level 103 101-111 mmol/L Carbon Dioxide Level 28 21-32 mmol/L Blood Urea Nitrogen 18 7-18 mg/dL Creatinine 1.4 H 0.5-1.3 mg/dL Glomerular Filtration Rate Calc 54 >90 mL/min Random Glucose 88 70-105 mg/dL Total Calcium 8.5 8.5-10.1 mg/dL Magnesium Level 1.80 1.80-2.40 mg/dL Total Bilirubin 0.4 0.2-1.0 mg/dL Aspartate Amino Transf (AST/SGOT) 14 10-37 U/L Alanine Aminotransferase (ALT/SGPT) 16 12-78 U/L Alkaline Phosphatase 74 50-136 U/L Total Protein 5.9 L 6.0-8.3 g/dL Albumin 3.2 L 3.5-5.0 g/dL DIAGNOSTICS / RADIOLOGY RESULTS: [Reviewed] PLAN NEURO: Minimize central acting medications as possible. Maintain fall precautions, adequate lighting during the day PULMONARY: Supplemental 02 as needed. Maintain aspiration precautions at all times CARDIOVASCULAR: Follow hemodynamics. Vital signs per facility protocol GI & NUTRITION: Continue with nutritional support. Continue stool softeners and laxatives as needed. KIDNEYS & ELECTROLYTES: Strict monitoring of intake, output and overall fluid balance. Avoid nephrotoxic medications to the extent possible. Medications to be dosed according to renal function. Monitor electrolytes and replace as needed ENDOCRINE: Maintain blood glucose between 100-180 at all times. Hypoglycemia protocol in place INFECTIOUS DISEASE: Trend temperature, WBC and procalcitonin level Follow cultures, deescalate antibiotics as soon as possible. Panculture if new onset fever ONCOLOGY/HEMATOLOGY/COAGULATION: Monitor for s/s of bleeding Monitor hemoglobin, coagulation studies as needed SKIN: Pressure ulcer prevention per facility protocol Specialty mattress ORTHO/REHAB: Continue PT/OT Prophylaxis: Continue GI and DVT prophylaxis Code Status: Full Resuscitation Disposition: TBD Other: Total patient care time exceeds 35 minutes excluding all procedures. XIMENA SANCHEZ Sep 12, 2024 09:49
[2024-09-12] MEDS ORDERED: PRED20TA3 PO (14:19)
--- NOTE | 2024-09-12 14:20 | DS ---
Discharge Summary Hospital Course Summary: 69-year-old male that was seen and examined today on 09/10/2024. Patient is a good historian and personal health. Patient's sister Sharon Reagan is at bedside. Patient reports that he came to the emergency department with a chief complaint of shortness of breath. Onset was one week ago. Location is to lungs. Duration is on and off. Symptoms are aggravated with lifting objects and excessive walking. Symptoms are mildly alleviated with rest. Patient reports associated lightheadedness. Character is described as" like I can not catch my breath. "Today in the emergency department CBC unremarkable, BUN 23, creatinine 1.9. Patient reports that last chemotherapy was 101 month ago. Patient reports he has a PET scan scheduled for October 2024. Patient follows Dr. Rodgers for Oncology Services in the outpatient setting. Emergency room physician recommended that patient be admitted with a diagnosis of COPD exacerbation. Assessment/Plan: ASSESSMENT: [ COPD EXACERBATION, POA Acute on chronic hypoxic respiratory failure POA STAGE III LUNG CA POA ACUTE ON CHRONIC KIDNEY INJURY POA Multifactorial anemia POA Electrolyte imbalance hyponatremia Na 132 hypokalemia K 3.4 UNCONTROLLED HYPERTENSION POA HYPERLIPIDEMIA POA] PLAN: CONSULTS: [employer], ONCOLOGIST ANTIBIOTICS: DOXYCYCLINE TESTS: NONE AT THIS MOMENT NEURO: MINIMIZE CENTRAL ACTING MEDICATIONS POSSIBLE. FALL PRECAUTIONS. WELL LIGHTED ROOM THROUGH THE DAY AND MINIMIZE INTERRUPTIONS THROUGH THE NIGHT TO PREVENT ACUTE DELIRIUM. PULMONARY: SUPPLEMENTAL 02 NEEDED BIPAP NECESSARY, FOR RESPIRATORY DISTRESS TITRATE FIO2 TO KEEP SPO2 > OR = 90% DUONEBS AND CPT NEEDED IS HOURLY WHILE AWAKE FOR PULMONARY HYGIENE OUT OF BED TO CHAIR TOLERATED VAP BUNDLE MAINTAIN ASPIRATION PRECAUTIONS AT ALL TIMES CARDIOVASCULAR: FOLLOW HEMODYNAMICS. VITAL SIGNS PER FACILITY PROTOCOL GI & NUTRITION: CONTINUE NUTRITIONAL SUPPORT ASPIRATIONS PRECAUTIONS PROKINETIC AGENTS AND LAXATIVES NEEDED KIDNEYS & ELECTROLYTES: STRICT MONITORING OF INTAKE AND OUTPUT DAILY WEIGHTS AVOID NEPHROTOXIC AGENTS MONITOR ELECTROLYTES AND REPLACE NEEDED GOAL URINE OUTPUT OF 30ML/HR OR 0.5ML/KG/HR MEDICATIONS TO BE DOSED ACCORDING TO RENAL FUNCTION. AVOID CONTRAST IF POSSIBLE ENDOCRINE: MAINTAIN BLOOD GLUCOSE BETWEEN 100-180 AT ALL TIMES. INSULIN SLIDING SCALE FOR BLOOD GLUCOSE MANAGEMENT HYPOGLYCEMIA AND HYPERGLYCEMIA PROTOCOL IN PLACE INFECTIOUS DISEASE: TREND TEMPERATURE, WBC AND PROCALCITONIN LEVEL FOLLOW CULTURES, DEESCALATE ANTIBIOTICS SOON POSSIBLE. PANCULTURE IF NEW ONSET FEVER HEMATOLOGY & COAGULATION: MONITOR H&H. KEEP HGB > 7 TRANSFUSE 1 UNIT OF PRBC FOR HGB < 7 TRANSFUSE 1 PACK OF PLATELETS OF PLATELETS < 20, 000 WATCH FOR ANY SIGNS AND SYMPTOMS OF BLEEDING SKIN: PRESSURE ULCER PREVENTION PER FACILITY PROTOCOL SPECIALTY MATTRESS NEEDED TREATMENT PLAN DISCUSSED WITH PATIENT AND FAMILY AT THE BEDSIDE MEDICATIONS TO BE RECONCILED ONCE OBTAINED BY PATIENT AND/OR FAMILY AND AVAILABLE TO BE RECONCILED IN COMPUTER P.R.N. MEDICATION FOR PAIN NAUSEA AND VOMITING QUESTIONS WERE ANSWERED WE WILL CONTINUE TO MONITOR THE PATIENT CLOSELY COSTUMED CHARACTER FOR DISPOSITION REHAB: PT/OT GI: PPI DVT: SCD'S CODE STATUS: FULL RESUSCITATION DISPOSITION: TBD PROGNOSIS: GUARDED ] Home Medications: Reported Medications Fluticasone Propion/Salmeterol (Fluticasone-Salmeterol 250-50) 250 Mcg-50 Mc g/Dose Blst.w.dev, 1 PUFF IH BID for 30 Days, #60 EACH 0 Refills 09/10/24 Nifedipine (Nifedipine ER) 30 Mg Tablet.er, 1 TAB PO DAILY for 30 Days, #30 TAB 0 Refills 09/10/24 Apixaban (Eliquis) 5 Mg Tablet, 1 TAB PO BID for 30 Days, #60 TAB 0 Refills 09/10/24 Levothyroxine Sodium (Levothyroxine) 75 Mcg Capsule, 1 TAB PO DAILY for 30 Days, #30 CAP 0 Refills 09/10/24 Folic Acid (Folvite) 1 Mg Tab, 1 TAB PO DAILY for 30 Days, #30 TAB 0 Refills 09/10/24 Rosuvastatin Calcium (Rosuvastatin Calcium) 10 Mg Tablet, 10 MG PO DAILY, TAB 01/29/23 Discontinued Reported Medications Fluticasone Propionate (Fluticasone Propionate) 15.8 Ml [place].susp, 2 SPRAY NS AD PRN for NASAL CONGESTION 01/29/23 Nifedipine (Nifedipine ER) 60 Mg Tab.er.24, 60 MG PO DAILY 01/29/23 Discontinued Scripts Metoprolol Tartrate (Lopressor) 25 Mg Tab, 12.5 MG PO BID for 30 Days, #60 TAB Prov:CARLOS GUY NP 03/20/23 BRICE WHITE Sep 12, 2024 14:20
--- NOTE | 2024-09-12 15:10 | NUR ---
DISCHARGE PERIPHERAL IV DISCONTINUED. PATIENT AND FAMILY PROVIDED DISCHARGE INSTRUCTIONS. PATIENT AND FAMILY INSTRUCTED ON FOLLOW UP APPOINTMENTS AND NEW PRESCRIPTIONS BEING SENT TO PHARMACY. ALL QUESTIONS ANSWERED.
== END 2024-09-12 15:15 | disposition home or self-care (01) | DRG 189 ==
LOC: EDH 21:20 → EDHIP 09-10 00:31 → 3AH 09-10 00:49
PROVIDERS: ADMIT Internal Medicine; ATTEND Internal Medicine
DX: J96.21 Acute and chronic respiratory failure with hypoxia (principal); J44.1 Chronic obstructive pulmonary disease with (acute) exacerbation; N17.9 Acute kidney failure, unspecified; E87.1 Hypo-osmolality and hyponatremia; J96.22 Acute and chronic respiratory failure with hypercapnia; D84.9 Immunodeficiency, unspecified; I12.9 Hypertensive chronic kidney disease with stage 1 through stage 4 chronic kidney disease, or unspecified chronic kidney disease; N18.9 Chronic kidney disease, unspecified; J47.9 Bronchiectasis, uncomplicated; E87.6 Hypokalemia; J84.10 Pulmonary fibrosis, unspecified; I48.91 Unspecified atrial fibrillation; Z20.822 Contact with and (suspected) exposure to COVID-19; E78.00 Pure hypercholesterolemia, unspecified; E11.22 Type 2 diabetes mellitus with diabetic chronic kidney disease; D64.9 Anemia, unspecified; Z88.0 Allergy status to penicillin; Z87.891 Personal history of nicotine dependence; Z85.118 Personal history of other malignant neoplasm of bronchus and lung; Z79.899 Other long term (current) drug therapy
CPT/HCPCS: 36415; 36600; 71045; 71270; 80048; 80053; 82550; 82570; 82803; 82948; 83605; 83735; 83880; 83935; 84100; 84300; 84484; 85025; 87040; 87635; 87804; 87880; 93005; 94640; 94664; 96365; 96375; 99285; G0378; J0696; J1650; J2765; J2919; J3490; J7030; J7120; Q9967